=== PATIENT | female | born 2005 | race Caucasian/White ===

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

== ENCOUNTER 2025-07-23 15:54 | Emergency (ER) | payer OTHER, SELFPAY ==
--- OUTSIDE RECORDS SUMMARY | 2025-07-23 15:57 | XMS_ITS | Clinical Summary ---
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
--- OUTSIDE RECORDS SUMMARY | 2025-07-23 15:58 | XMS_ITS | Clinical Summary ---
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 Gender Identity Not on file Sexual Orientation Not on file Plan of Treatment Health Maintenance Due Date Last Done Comments ADVANCE CARE PLANNING 2005 ANNUAL REVIEW OF HM ORDERS 2005 CHLAMYDIA SCREENING 2004 DTAP/TDAP/TD VACCINE (2 - Td or Tdap) 04/22/2016 03/25/2016 HPV VACCINE (2 - 2-dose series) 05/25/2016 11/25/2015 HIV SCREENING 2019 MENINGITIS B VACCINE (1 of 2 - Standard) 2020 HEPATITIS C SCREENING 2022 HEPATITIS B VACCINE (1 of 3 - 19+ 3-dose series) 2023 YEARLY PREVENTIVE VISIT 03/29/2024 03/29/20, 03/02/2022, 05/04/2021, Additional history exists PHQ-2 (once per calendar year) 2024 PAP 2025 COVID-19 VACCINE ( - season) 2025 INFLUENZA VACCINE (#1) 2025 08/29/2019, 2018 ZOSTER VACCINE (1 of 2) 2054 MENINGITIS VACCINE Completed 03/02/2022, 03/25/2016 PNEUMOCOCCAL VACCINE: PEDIATRICS (0 to 5 YEARS) AND AT-RISK PATIENTS (6 to 49 YEARS) Aged Out No longer eligible based on patient's age to complete this topic [facility] [id number] [facility] Care Teams Proc Tech Relationship Specialty Start Date End Date No Ref-Primary, Physician PCP - General 10/26/23
--- OUTSIDE RECORDS SUMMARY | 2025-07-23 15:58 | XMS_ITS | Clinical Summary ---
Author Organization [facility] Address [address] [place] [address] Care Team Providers Care Water Quality Tester Name Role Phone Pcp, No Primary Care Provider Unavailabl e Allergies Active Allergy Reactions Criticality Noted Date Comments Dog Dander Anaphylaxis,Hives High 07/11/2025 Egg Derived Other - Describe In Comment Field 04/27/2021 GI upset Wheat Containing Prod Other - Describe I n Comment Field 04/27/2021 GI upset Medications benzonatate (TESSALON) 100 mg capsuleIndicati ons:Bronchitis with bronchospasm,As thma, unspecified asthma severity, unspecified whether complicated, unspecified whether persistent (HC) Take 1 Capsule (100 mg) by mouth 3 times daily if needed for Cough. 30 Capsule 5 Active albuterol 0.083% (2.5 mg/3 mL) neb solutionIndicat ions:Bronchitis with bronchospasm,As thma, unspecified asthma severity, unspecified whether complicated, unspecified whether persistent (HC) Inhale 3 mL (2.5 mg) via a nebulizer every 4 hours if needed for Cough 1st choice. 180 mL 5 Active NebulizerIndica tions:Bronchiti s with bronchospasm,As thma, unspecified asthma severity, unspecified whether complicated, unspecified whether persistent (HC) Nebulizer, disposable neb kit x 4, reuseable neb kit x 1, mask x 1, filters x 1. Frequency of use: daily; Medication: albuterol Length of need: prn months 1 Each 5 Active azithromycin (Zithromax Z-Velasquez) 250 mg tabletIndicatio ns:Bronchitis with bronchospasm,As thma, unspecified asthma severity, unspecified whether complicated, unspecified whether persistent (HC) Take 500 mg (2 tabs) by mouth on day 1, then 250 mg (1 tab) daily for days 2-5. 6 Tablet 5 025 Discontinu ed(*Med complete/R egimen complete/L evel of care change) predniSONE (DELTASONE) 20 mg tabletIndicatio ns:Bronchitis with bronchospasm,As thma, unspecified asthma severity, unspecified whether complicated, unspecified whether persistent (HC) Take 2 Tablets (40 mg) by mouth once daily with a meal for 5 days. 10 Tablet 5 025 NebulizerIndica tions:Bronchiti s with bronchospasm,As thma, unspecified asthma severity, unspecified whether complicated, unspecified whether persistent (HC) Nebulizer, disposable neb kit x 4, reuseable neb kit x 1, mask x 1, filters x 1. Frequency of use: daily; Medication: albuterol Length of need: prn months 1 Each 5 025 Discontinu ed(Reorder (E-cancel not sent)) NebulizerIndica tions:Bronchiti s with bronchospasm,As thma, unspecified asthma severity, unspecified whether complicated, unspecified whether persistent (HC) Nebulizer, disposable neb kit x 4, reuseable neb kit x 1, mask x 1, filters x 1. Frequency of use: daily; Medication: albuterol Length of need: prn months 1 Each 5 025 Discontinu ed(Reorder (E-cancel not sent)) NebulizerIndica tions:Bronchiti s with bronchospasm,As thma, unspecified asthma severity, unspecified whether complicated, unspecified whether persistent (HC) Nebulizer, disposable neb kit x 4, reuseable neb kit x 1, mask x 1, filters x 1. Frequency of use: daily; Medication: albuterol Length of need: prn months 1 Each 5 025 Discontinu ed(Reorder (E-cancel not sent)) NebulizerIndica tions:Bronchiti s with bronchospasm,As thma, unspecified asthma severity, unspecified whether complicated, unspecified whether persistent (HC) Nebulizer, disposable neb kit x 4, reuseable neb kit x 1, mask x 1, filters x 1. Frequency of use: daily; Medication: albuterol Length of need: prn months 1 Each 5 025 Discontinu ed(Reorder (E-cancel not sent)) NebulizerIndica tions:Bronchiti s with bronchospasm,As thma, unspecified asthma severity, unspecified whether complicated, unspecified whether persistent (HC) Nebulizer, disposable neb kit x 4, reuseable neb kit x 1, mask x 1, filters x 1. Frequency of use: daily; Medication: albuterol Length of need: prn months 1 Each 5 025 Discontinu ed(Reorder (E-cancel not sent)) colchicine 0.6 mg tabletIndicatio ns:Acute pericarditis, unspecified type (HC) Take 1 Tablet (0.6 mg) by mouth two times daily for 7 days. 14 Tablet 5 025 Active Problems Problem Noted Date Diagnosed Date Asthma, unspecified asthma s everity, unspecified whether complicated, unspecified whether persistent 07/04/2025 Encounters Date Type Department Care Team Description 07/11/2025 11:55 AM CDT Office Visit [facility] [address] [place] [address] Rosina Lee PA Breathing Problem (chest tightness, worse with exercise, isn't improving. Pain/tightness in chest when taking deep breaths) 07/11/2025 11:30 AM CDT Ancillary Procedure [facility] [address] [place] [address] 07/11/2025 Orders Only [facility] [address] [place] [address] Rosina Lee PA 2 scans: (2-Ord) NFLD-EKG-07/11/25 07/11/2025 Travel 07/04/2025 1:40 PM CDT Office Visit [facility] [address] [place] [address] Rosina Lee PA URI (ongoing for 3 weeks, seems to be worse when exercising, clear chest xray per [facility]. albuterol was helpful with breathing, but congestion is worsening. ) 07/04/2025 Travel from Last 3 Months Social History Tobacco Use Types Packs/Day Years Used Date Smoking Tobacco: Never Smokeless Tobacco: Never Tobacco Cessation:Counseling Given: Not Answered Social Connections Answer Date Recorded Do you often feel lonely or isolated from those around you? 0 07/04/2025 Financial Resource Strain Answer Date R ecorded Difficulty of Paying Living Expenses 3 07/04/2025 Difficulty of Paying Living Expenses Not on file 07/04/2025 Food Insecurity Answer Date Recorded Do you worry your food will run out before you are able to buy more? 1 07/04/2025 Transportation Needs Answer Date Record ed Does lack of transportation keep you from medica l appointments? 1 07/04/2025 Does lack of transportation keep you from work, meetings or getting things that you need? 1 07/04/2025 Housing Stability Answer Date Recorded What is your housing situation today? 1 07/04/2025 Utilities Answer Date Recorded Do you have trouble paying f or utilities (for example, heat, electricity, water, phone)? 1 07/04/2025 Comments No Sex and Gender Information Value Date Recorded Sex Assigned at Not on file Legal Sex Female 1:39 PM CDT Gender Identity Not on file Sexual Orientation Not on file Obstetrics History Last Filed Vital Signs Vital Sign Reading Time Taken Comments Blood Pressure 125/79 07/11/2025 8:32 AM CDT Pulse 64 07/11/2025 8:32 AM CDT Temperature 36.8 C (98.3 F) 07/04/2025 8:55 AM CDT Respiratory Rate - - Oxygen Saturation 98% 07/11/2025 8:32 AM CDT Inhaled Oxygen Concentration - - Weight - - Height - - Body Mass Index - - Plan of Treatment Upcoming Encounters Date Type Department Care Team (Late st Contact Info) Description 07/26/2025 11:00 AM CDT Ancillary Procedure [facility] [address] [place] [id number] Health Maintenance Due Date Last Done Comments Tetanus booster 2015 Depression screening for age 12+ 2016 HIV for age 15-65 2019 HPV series for age 9-45 (1 - 3-dose series) 2019 Chlamydia for age 16-24 2020 BMI (ht and wt on same day) for age 18+ 2022 Hepatitis C screening for age 18-79 2022 Hepatitis B series for 19+ ( 1 of 3 - 19+ 3-dose series) 2023 Pap test for age 21-65 2025 COVID-19 vaccine series ( - 2023- season) 2025 Influenza Vaccine (#1) 2025 RSV vaccine for adults or pr egnancy (1 - 1-dose 75+ series) 2079 Meningococcal series for age 11-21 Aged Out No longer eligible based on patient's age to complete this topic Pneumococcal series for age 6-49 Aged Out No longer eligible based on patient's age to complete this topic Procedures Procedure Name Priority Date/Time Associated Diagnosis Comments EKG 12 LEAD Routine 07/11/2025 9:58 AM CDT FIGUEROA (dyspnea on exertion) Chest pain, unspecified type MA READING EKG - NO CHARGE, COMP ONLY Routine 07/11/2025 9:56 AM CDT FIGUEROA (dyspnea on exertion) Chest pain, unspecified type CT CHEST PE STUDY STAT 07/11/2025 9:2 7 AM CDT FIGUEROA (dyspnea on exertion) Chest pain, unspecified type from Last 3 Months Results * EKG 12 LEAD (07/11/2025 9:58 AM CDT) us Rosina MARIE EKG ORD Edited Result - Final * MA READING EKG - NO CHARGE, COMP ONLY (07/11/2025 9:56 AM CDT) us Rosina MARIE PB - PROVIDER READINGS Final Result * CT CHEST PE STUDY (07/11/2025 9:27 AM CDT) Anatomical Region Laterality Modality CHEST, THORAX, HEART Computed To mography 07/11/2025 9:36 AM CDT Impressions 07/11/2025 9:36 AM CDT No findings of pulmonary embolus. Normal examination. Please note that all CT scans at this facility use dose modulation, iterative reconstruction, and/or weight-based dosing when appropriate to reduce radiation dose to as low as reasonably achievable. Dictated by Segnu Salazar MD @ 07/11/2025 9:36:04 AM (Electronically Signed) Narrative 07/11/2025 9:36 AM CDT For Patients: As a result of the Cures Act, medical imaging exams and procedure reports are released immediately into your electronic medical record. You may view this report before your referring provider. If you have questions, please contact your health care provider. INDICATION: Dyspnea on exertion. Chest pain. Clinical signs and symptoms of pulmonary embolus. COMPARISON: None TECHNIQUE: : CT examination of the chest was performed with the uneventful intravenous administration of 70 cc of Omnipaque 350 while thin axial sections were obtained from above the apices of the lungs to the lung bases. The examination was timed as a pulmonary artery angiogram. 3D reformat/MIP imaging was also provided. Please note that all CT scans at this facility use dose modulation, iterative reconstruction, and/or weight-based dosing when appropriate to reduce radiation dose to as low as reasonably achievable. FINDINGS: : HEART and MEDIASTINUM: The heart size is normal. There is no mediastinal or hilar adenopathy or mass. There is no pericardial effusion.Age-appropriate persistence of the thymus PULMONARY ARTERIAL CIRCULATION: There is no visible intraluminal filling defect to suggest pulmonary embolus. LUNGS and PLEURAL SPACES: The lungs show no focal consolidation or mass. The airways appear normal.There is no pleural effusion, pneumothorax or pleural based mass. VISUALIZED UPPER ABDOMEN: The limited visualized upper abdominal structures appear normal. OSSEOUS STRUCTURES: Age-appropriate appearance. No acute fracture or destructive process. TUBES and LINES: None. Procedure Note Segun Salazar MD - 07/11/2025 For Patients: As a result of the Cures Act, medical imagingexams and procedure reports are released immediately into your electronicmedical record. You may view this report before your referring provider.If you have questions, please contact your health care provider. INDICATION: Dyspnea on exertion. Chest pain. Clinical signs and symptoms of pulmonaryembolus. COMPARISON: None TECHNIQUE: : CT examination of the chest was performed with the uneventful intravenousadministration of 70 cc of Omnipaque 350 while thin axial sections wereobtained from above the apices of the lungs to the lung bases. Theexamination was timed as a pulmonary artery angiogram. 3D reformat/MIPimaging was also provided. Please note that all CT scans at this facility use dose modulation,iterative reconstruction, and/or weight-based dosing when appropriate toreduce radiation dose to as low as reasonably achievable. FINDINGS: : HEART and MEDIASTINUM: The heart size is normal. There is no mediastinalor hilar adenopathy or mass. There is no pericardialeffusion.Age-appropriate persistence of the thymus PULMONARY ARTERIAL CIRCULATION: There is no visible intraluminal fillingdefect to suggest pulmonary embolus. LUNGS and PLEURAL SPACES: The lungs show no focal consolidation or mass.The airways appear normal.There is no pleural effusion, pneumothorax orpleural based mass. VISUALIZED UPPER ABDOMEN: The limited visualized upper abdominalstructures appear normal. OSSEOUS STRUCTURES: Age-appropriate appearance. No acute fracture ordestructive process. TUBES and LINES: None. IMPRESSION: No findings of pulmonary embolus. Normal examination. Please note that all CT scans at this facility use dose modulation,iterative reconstruction, and/or weight-based dosing when appropriate toreduce radiation dose to as low as reasonably achievable. Dictated by Segun Salazar MD @ 07/11/2025 9:36:04 AM (Electronically Signed) Rosina MARIE CT Final Result from Last 3 Months Insurance [employer] Care Teams Water Quality Tester Relationship Specialty Start Date End Date Pcp, No . PCP - General 07/04/23
--- OUTSIDE RECORDS SUMMARY | 2025-07-23 15:58 | XMS_ITS | Data Portability ---
Author Organization [place] [facility], Main Office Address [address] [facility] [address] [id number] Assessment No assessment recorded. Plan of Treatment Reminders Order Date Submit Date Provider Last Modified By Organization Details Last Modified Time Details Appointments None recorded. Lab TSH, serum or plasma 2024 025 [facility], [address], [address], [place], [address], 5 08:09:27 CBC w/ auto diff 2024 025 [facility], [address], [address], [place], [address], 5 08:09:30 CMP, serum or plasma 2024 025 [facility] [place] [facility], [address], [address], [place], [address], 5 08:09:28 ferritin, serum or plasma 2024 025 [facility] [place] [facility], [address], [address], [place], [address], 5 08:09:29 iron + total iron-bindin g capacity (TIBC), serum 2024 025 [facility] [place] [facility], [address], [address], [place], [address], 5 08:09:29 CBC w/ auto diff 2024 025 [facility] [place] [facility], [address], [address], [place], [address], 5 04:10:25 iron + total iron-bindin g capacity (TIBC), serum 2024 025 [facility] [place] [facility], [address], [address], [place], [address], 5 04:10:24 ferritin, serum or plasma 2024 025 [facility] [place] [facility], [address], [address], [place], [address], 5 04:10:23 iron + total iron-bindin g capacity (TIBC), serum 2022 023 [facility] [place] [facility], [address], [address], [place], [address], 3 06:18:06 ferritin, serum or plasma 2022 023 [facility] [place] [facility], [address], [address], [place], [address], 3 06:18:07 CBC w/ auto diff 2022 023 [facility] [place] [facility], [address], [address], [place], [address], 3 06:18:06 CMP, serum or plasma 2022 023 [email or web address] [facility] [place] [facility], [address], [address], [place], [address], 3 16:59:39 PTH (parathyroi d hormone), intact + calcium, serum or plasma 2022 023 [facility] [place] [facility], [address], [address], [place], [address], 3 11:12:04 magnesium, serum or plasma 2022 023 [facility] [place] [facility], [address], [address], [place], [address], 3 11:12:00 vitamin D, 25-hydroxy, total, serum 2022 023 [facility] [place] [facility], [address], [address], [place], [address], 3 11:12:01 lipid panel, serum 2022 023 [facility], [address], [address], [place], [address], 3 11:12:03 TSH, serum or plasma 2022 023 [facility] [place] [facility], [address], [address], [place], [address], 3 11:12:03 CBC w/ auto diff 2022 023 [facility] [place] [facility], [address], [address], [place], [address], 3 11:12:00 CMP, serum or plasma 2022 023 [facility] [place] [facility], [address], [address], [place], [address], 3 11:12:02 ferritin, serum or plasma 2022 023 [facility] [place] [facility], [address], [address], [place], [address], 3 11:12:02 iron + total iron-bindin g capacity (TIBC), serum 2022 023 [facility], [address], [address], [place], [address], 3 11:12:01 Referral physical therapist referral - recurrent stress fractures 2023 024 [facility], [address], [address], [place], [address], 4 16:29:56 Procedures None recorded. Surgeries None recorded. Imaging XR, lower extremity 2022 023 [email or web address] Ash Moore MD, [address], [address], [place], [address], 3 11:11:17 MRI, lower leg, w/o contrast 2022 023 [email or web address], [address], [address], [place], [address], 3 15:04:37 XR, lower extremity 2022 023 [email or web address] Ash Moore MD, [address], [address], [place], [address], 3 11:18:32 Medication Orders epinephrine 0.3 mg/0.3 mL injection, auto-inject or 2024 025 [facility] [place] [facility], [address], [place], [place], [id number], 5 13:19:49 Mary Ellen Fe 1.5/30 (28) 1.5 mg-30 mcg (21)/75 mg (7) tablet 2024 025 [facility] [place] [facility], [address], [place], [place], [id number], 13:19:49 Patient TargetsNo targets recorded. Patient Instructions Encounter Date Encounter Id Patient Instructions Last Modified By Organization Details Last Modified Time 03/29/2023 [id number] iron deficiency anemia in children: care instructions Not available 03/29/2023 11:04:57 09/21/2023 [id number] iron deficiency anemia: care instructions Not available 09/21/2023 11:09:30 05/08/2025 [id number] iron deficiency anemia: care instructions Not available 05/08/2025 13:19:47 Reason for Referral Physical Therapist Referral for Pain in right lower limb recurrent stress fractures Referring Physician: Ash Moore, Family Medicine, Encounter Date: 03/05/2024 Results Created Date Observation Date Name Description Value Unit Range Abnormal Flag Note LastModifiedBy Organization Detail LastModifiedTime 03/29/2003/30/2023 MAGNE SIUM magnesium 1.9 mg/dL 1.7-2. 2 Testi ng Perfo rmed At: [facility] [address] [place] [address] Labor atory [facility] tor: Sukhjinder noe M.D. CLIA Numbe r [id number] [place] [id number] Not Available [facility] Main Lab (Blood Not Drawn At This Location) Visit [employer] [place], [address], 03/30/2023 11:12:00 03/29/20 23 03/29/2023 CBC W/AUT O DIFF WITH PLATE LETS WBC 5.6 K/uL 3.5-11 .0 Not Available [facility] (Blood Not Drawn At This Location) Visit [employer] [place], [address], 03/30/2023 11:12:00 03/29/20 23 03/29/2023 CBC W/AUT O DIFF WITH PLATE LETS RBC 4.70 M/uL 3.80-5 .40 Not Available [facility] (Blood Not Drawn At This Location) Visit [employer] [place], [address], 03/30/2023 11:12:00 03/29/20 23 03/29/2023 CBC W/AUT O DIFF WITH PLATE LETS hemoglobin 12.5 g/dL 11.5-1 5.5 Not Available [facility] (Blood Not Drawn At This Location) Visit [employer] [place], [address], 03/30/2023 11:12:00 03/29/2003/29/2023 CBC W/AUT O DIFF WITH PLATE LETS hematocrit 39.4 % 34.0-4 5.0 Not Available [facility] (Blood Not Drawn At This Location) Visit [employer] [place], [address], 03/30/2023 11:12:00 03/29/20 23 03/29/2023 CBC W/AUT O DIFF WITH PLATE LETS MCV 83.8 fL 80.0-9 9.0 Not Available [facility] (Blood Not Drawn At This Location) Visit [employer] [place], [address], 03/30/2023 11:12:00 03/29/20 23 03/29/2023 CBC W/AUT O DIFF WITH PLATE LETS MCH 26.6 pg 25.0-3 3.0 Not Available [facility] (Blood Not Drawn At This Location) Visit [employer] [place], [address], 03/30/2023 11:12:00 03/29/20 23 03/29/2023 CBC W/AUT O DIFF WITH PLATE LETS MCHC 31.7 g/dL 31.0-3 6.0 Not Available [facility] (Blood Not Drawn At This Location) Visit [employer] [place], [address], 03/30/2023 11:12:00 03/29/20 23 03/29/2023 CBC W/AUT O DIFF WITH PLATE LETS RDW 11.8 % 11.5-1 5.0 Not Available [facility] (Blood Not Drawn At This Location) Visit [employer] [place], [address], 03/30/2023 11:12:00 03/29/20 23 03/29/2023 CBC W/AUT O DIFF WITH PLATE LETS neutrophils 59.4 % Not Available [facility] (Blood Not Drawn At This Location) Visit [employer] [place], [address], 03/30/2023 11:12:00 03/29/20 23 03/29/2023 CBC W/AUT O DIFF WITH PLATE LETS lymphocytes 31.7 % Not Available [facility] (Blood Not Drawn At This Location) Visit [employer] [place], [address], 03/30/2023 11:12:00 03/29/20 23 03/29/2023 CBC W/AUT O DIFF WITH PLATE LETS monocytes 4.8 % Not Available [facility] (Blood Not Drawn At This Location) Visit [employer] [place], [address], 03/30/2023 11:12:00 03/29/20 23 03/29/2023 CBC W/AUT O DIFF WITH PLATE LETS eosinophils 3.4 % Not Available [facility] (Blood Not Drawn At This Location) Visit [employer] [place], [address], 03/30/2023 11:12:00 03/29/20 23 03/29/2023 CBC W/AUT O DIFF WITH PLATE LETS basophils 0.5 % Not Available [facility] (Blood Not Drawn At This Location) Visit [employer] [place], [address], 03/30/2023 11:12:00 03/29/20 23 03/29/2023 CBC W/AUT O DIFF WITH PLATE LETS immature granulocytes 0.2 % Not Available [facility] - Main Lab (Blood Not Drawn At This Location) Visit [employer] [place], [address], 03/30/2023 11:12:00 03/29/20 23 03/29/2023 CBC W/AUT O DIFF WITH PLATE LETS nucleated RBCs 0.0 /100_ WBC's 0.0 Not Available [facility] (Blood Not Drawn At This Location) Visit [employer] [place], [address], 03/30/2023 11:12:00 03/29/20 23 03/29/2023 CBC W/AUT O DIFF WITH PLATE LETS platelet count 348 K/uL 130-40 0 Not Available [facility] (Blood Not Drawn At This Location) Visit [employer] [place], [address], 03/30/2023 11:12:00 03/29/20 23 03/29/2023 CBC W/AUT O DIFF WITH PLATE LETS absolute neutrophils 3.33 K/uL 1.50-7 .50 Not Available [facility] (Blood Not Drawn At This Location) Visit [employer] [place], [address], 03/30/2023 11:12:00 03/29/20 23 03/29/2023 CBC W/AUT O DIFF WITH PLATE LETS absolute lymphocytes 1.78 K/uL 1.00-4 .00 Not Available [facility] (Blood Not Drawn At This Location) Visit [employer] [place], [address], 03/30/2023 11:12:00 03/29/20 23 03/29/2023 CBC W/AUT O DIFF WITH PLATE LETS absolute monocytes 0.27 K/uL 0.2-3. 8 Not Available [facility] (Blood Not Drawn At This Location) Visit [employer] [place], [address], 03/30/2023 11:12:00 03/29/20 23 03/29/2023 CBC W/AUT O DIFF WITH PLATE LETS absolute eosinophils 0.19 K/uL 0.00-0 .50 Not Available [facility] (Blood Not Drawn At This Location) Visit [employer] [place], [address], 03/30/2023 11:12:00 03/29/20 23 03/29/2023 CBC W/AUT O DIFF WITH PLATE LETS absolute basophils 0.03 K/uL 0.00-0 .20 Not Available [facility] (Blood Not Drawn At This Location) Visit [employer] [place], [address], 03/30/2023 11:12:00 03/29/20 23 03/29/2023 CBC W/AUT O DIFF WITH PLATE LETS abs immature granulocytes 0.01 K/uL 0.00-0 .10 Not Available [facility] (Blood Not Drawn At This Location) Visit [employer] [place], [address], 03/30/2023 11:12:00 03/29/20 23 03/29/2023 CBC W/AUT O DIFF WITH PLATE LETS abs nucleated RBCs 0.00 K/uL 0.00-0 .11 Testi ng Perfo rmed At: [facility] [address] [place] [address] Labor atory Direc tor: Jesus Barba [id number] [place] [id number] Not Available [facility] (Blood Not Drawn At This Location) Visit [employer] [place], [address], 03/30/2023 11:12:00 03/29/20 23 03/30/2023 IRON MATHEW NG CAPAC ITY AND IRON AND % SATUR ATION iron, serum 130 ug/dL 37-145 Not Available [facility] (Blood Not Drawn At This Location) Visit [employer] [place], [address], 03/30/2023 11:12:01 03/29/20 23 03/30/2023 IRON MATHEW NG CAPAC ITY AND IRON AND % SATUR ATION unsaturated ibc 288 ug/dL 112-34 7 Not Available [facility] (Blood Not Drawn At This Location) Visit [employer] [place], [address], 03/30/2023 11:12:01 03/29/20 23 03/30/2023 IRON MATHEW NG CAPAC ITY AND IRON AND % SATUR ATION calc total ibc 418 ug/dL 250-45 0 Not Available [facility] (Blood Not Drawn At This Location) Visit [employer] [place], [address], 03/30/2023 11:12:01 03/29/20 23 03/30/2023 IRON MATHEW NG CAPAC ITY AND IRON AND % SATUR ATION calc % iron sat 31 % 20-50 Testi ng Perfo rmed At: [facility] [address] [place] [address] Labor atory Dire tor: Jesus Barba [id number] [place] [id number] Not Available [facility] (Blood Not Drawn At This Location) Visit [employer] [place], [address], 03/30/2023 11:12:01 03/29/20 23 03/30/2023 VITAM IN D, 25 OH vitamin D, 25 oh 52 NG/mL see below EF FECTI VE 10/11 , MAGALY [facility] NOTE NEW METHO DOLOG Y IS ELECT ADI MILUM INESC ENCE MTAHEW NG ASSAY . NOTE: 25-HY DROXY VITAM IN D ASSAY INCLU DIANE 25-HY DROXY VITAM IN D2 AND D3. INTER PRETI VE RANGE S PEDIA TRIC (<17 YEARS ) . . . . . . . . . . . NG/ML 20-10 0 ADULT : INSUF FICIE NT . . . . . . . . . . . . . . NG/ML <20 SUBOP TIMAL . . . . . . . . . . . . . . . NG/ML 20-29 OPTIM AL . . . . . . . . . . . . . . . . . NG/ML 30-10 0 Testi ng Perfo rmed At: [facility] [address] [place] [address] Labor atory Dire tor: Sukhjinder noe M.D. CLIA Numbe r [id number] [place] [id number] Not Available [facility] (Blood Not Drawn At This Location) Visit [employer] [place], [address], 03/30/2023 11:12:01 03/29/20 23 03/30/2023 COMPR EHENS DIANA METAB OLIC PANEL + E-GFR glucose 91 mg/dL 70-99 Not Available [facility] (Blood Not Drawn At This Location) Visit [employer] [place], [address], 03/30/2023 11:12:02 03/29/20 23 03/30/2023 COMPR EHENS DIANA METAB OLIC PANEL + E-GFR BUN 9 mg/dL 6-20 Not Available [facility] (Blood Not Drawn At This Location) Visit [employer] [place], [address], 03/30/2023 11:12:02 03/29/20 23 03/30/2023 COMPR EHENS DIANA METAB OLIC PANEL + E-GFR creatinine 0.82 mg/dL 0.50-1 .10 Not Available [facility] (Blood Not Drawn At This Location) Visit [employer] [place], [address], 03/30/2023 11:12:02 03/29/20 23 03/30/2023 COMPR EHENS DIANA METAB OLIC PANEL + E-GFR eGFR (2020 CKD-epi) NO CALC mL/mi n/1.7 3 >60 NOTE: 2020 CKD-E PI is not valid ated for pedia tric popul ation s. For patie nts less than 19 years old, consi julianne NKF pedia tric eGFR calcu lator https ://arsenio long.o rg/pr kathy mead s/kdo qi/gf r_cal culat orPed Not Available [facility] (Blood Not Drawn At This Location) Visit [employer] [place], [address], 03/30/2023 11:12:02 03/29/20 23 03/30/2023 COMPR EHENS DIANA METAB OLIC PANEL + E-GFR calc BUN/creat 11 ratio 6-28 Not Available [facility] (Blood Not Drawn At This Location) Visit [employer] [place], [address], 03/30/2023 11:12:02 03/29/20 23 03/30/2023 COMPR EHENS DIANA METAB OLIC PANEL + E-GFR sodium 140 mEq/L 133-14 6 Not Available [facility] (Blood Not Drawn At This Location) Visit [employer] [place], [address], 03/30/2023 11:12:02 03/29/20 23 03/30/2023 COMPR EHENS DIANA METAB OLIC PANEL + E-GFR potassium 4.5 mEq/L 3.5-5. 4 Not Available [facility] (Blood Not Drawn At This Location) Visit [employer] [place], [address], 03/30/2023 11:12:02 03/29/20 23 03/30/2023 COMPR EHENS DIANA METAB OLIC PANEL + E-GFR chloride 105 mEq/L 95-107 Not Available [facility] (Blood Not Drawn At This Location) Visit [employer] [place], [address], 03/30/2023 11:12:02 03/29/20 23 03/30/2023 COMPR EHENS DIANA METAB OLIC PANEL + E-GFR carbon dioxide 22 mEq/L 19-31 Not Available [facility] (Blood Not Drawn At This Location) Visit [employer] [place], [address], 03/30/2023 11:12:02 03/29/20 23 03/30/2023 COMPR EHENS DIANA METAB OLIC PANEL + E-GFR calcium 9.5 mg/dL 8.5-10 .5 Not Available [facility] (Blood Not Drawn At This Location) Visit [employer] [place], [address], 03/30/2023 11:12:02 03/29/20 23 03/30/2023 COMPR EHENS DIANA METAB OLIC PANEL + E-GFR protein, total 7.3 g/dL 6.1-8. 3 Not Available [facility] (Blood Not Drawn At This Location) Visit [employer] [place], [address], 03/30/2023 11:12:02 03/29/20 23 03/30/2023 COMPR EHENS DIANA METAB OLIC PANEL + E-GFR albumin 4.7 g/dL 3.5-5. 2 Not Available [facility] (Blood Not Drawn At This Location) Visit [employer] [place], [address], 03/30/2023 11:12:02 03/29/20 23 03/30/2023 COMPR EHENS DIANA METAB OLIC PANEL + E-GFR calc globulin 2.6 g/dL 2.1-3. 7 Not Available [facility] (Blood Not Drawn At This Location) Visit [employer] [place], [address], 03/30/2023 11:12:02 03/29/20 23 03/30/2023 COMPR EHENS DIANA METAB OLIC PANEL + E-GFR calc A/G ratio 1.8 ratio 1.0-2. 6 Not Available [facility] (Blood Not Drawn At This Location) Visit [employer] [place], [address], 03/30/2023 11:12:02 03/29/20 23 03/30/2023 COMPR EHENS DIANA METAB OLIC PANEL + E-GFR bilirubin, total 0.9 mg/dL <=1.2 Not Available [facility] (Blood Not Drawn At This Location) Visit [employer] [place], [address], 03/30/2023 11:12:02 03/29/20 23 03/30/2023 COMPR EHENS DIANA METAB OLIC PANEL + E-GFR alkaline phosphatase 85 U/L 45-126 Not Available [facility] - Main Lab (Blood Not Drawn At This Location) Visit [employer] [place], [address], 03/30/2023 11:12:02 03/29/20 23 03/30/2023 COMPR EHENS DIANA METAB OLIC PANEL + E-GFR AST 16 U/L 9-40 Not Available [facility] (Blood Not Drawn At This Location) Visit [employer] [place], [address], 03/30/2023 11:12:02 03/29/20 23 03/30/2023 COMPR EHENS DIANA METAB OLIC PANEL + E-GFR ALT 12 U/L 5-40 Testi ng Perfo rmed At: [facility] [address] [place] [address] Labor atory Direc tor: Jesus Barba r [id number] [id number] [place] [id number] -01 Not Available [facility] (Blood Not Drawn At This Location) Visit [employer] [place], [address], 03/30/2023 11:12:02 03/29/20 23 03/30/2023 LIBBY TIN ferritin 11 NG/mL 13-200 low Testi ng Perfo rmed At: [facility] [address] [place] [address] Labor atory Direc tor: Jesus Barbae r [id number] [place] [id number] -01 Not Available [facility] (Blood Not Drawn At This Location) Visit [employer] [place], [address], 03/30/2023 11:12:02 03/29/20 23 03/30/2023 TSH, THIRD GENER ATION TSH, third generation 1.830 uIU/m L 0.400- 4.100 Testi ng Perfo rmed At: [employer] [facility] [address] [place] [address] Labor atory Direc tor: Jesus Barbae r [id number] [place] [id number] -[id number] Not Available [facility] (Blood Not Drawn At This Location) Visit [employer] [place], [address], 03/30/2023 11:12:03 03/29/20 23 03/30/2023 LIPID PANEL cholesterol 158 mg/dL <200 Not Available [facility] (Blood Not Drawn At This Location) Visit [employer] [place], [address], 03/30/2023 11:12:03 03/29/20 23 03/30/2023 LIPID PANEL triglyceride s 81 mg/dL <150 Not Available [facility] (Blood Not Drawn At This Location) Visit [employer] [place], [address], 03/30/2023 11:12:03 03/29/20 23 03/30/2023 LIPID PANEL HDL cholesterol 42 mg/dL >39 Not Available [facility] - Main Lab (Blood Not Drawn At This Location) Visit [employer] [place], [address], 03/30/2023 11:12:03 03/29/20 23 03/30/2023 LIPID PANEL calc LDL chol 99 mg/dL <100 NOTE: CALCU LATED LDL IS BASED ON DAVONTE N-HOP KINS METHO D WHICH INCLU DIANE ADJUS TABLE TRIGL YCERI DE:VL DL PRO STERO L RATIO . THIS FACTO R VARIE S BY MEASU RED TRIGL YCERI DE AND NON-H DL PRO STERO L FUENTES NTRAT IONS WITH INCRE ASED CALCU LATED LDL SEEN IN HIGHE R TRIGL YCERI DE OR LOWER NON-H DL SPECI MENS. FOR MORE INFOR KIRTI N, SEE DEVEN TRIPP NT AT [email or web address]: [email or web address] Not Available [facility] (Blood Not Drawn At This Location) Visit [employer] [place], [address], 03/30/2023 11:12:03 03/29/20 23 03/30/2023 LIPID PANEL risk ratio LDL/HDL 2.36 ratio <3.22 Testi ng Perfo rmed At: [facility] [address] [place] [address] Labor atory Direc tor: Sukhjinder noe M.D. MASHA Lunsford r [id number] [place] [id number] -[id number] Not Available [facility] (Blood Not Drawn At This Location) Visit [employer] [place], [address], 03/30/2023 11:12:03 03/29/20 23 03/30/2023 PTH, INTAC T, WITH CALCI UM, PHOSP HORUS , CREAT ININE intact PTH 22 pg/mL 15-65 Not Available [facility] (Blood Not Drawn At This Location) Visit [employer] [place], [address], 03/30/2023 11:12:04 03/29/20 23 03/30/2023 PTH, INTAC T, WITH CALCI UM, PHOSP HORUS , CREAT ININE calcium 9.5 mg/dL 8.5-10 .5 Not Available [facility] (Blood Not Drawn At This Location) Visit [employer] [place], [address], 03/30/2023 11:12:04 03/29/20 23 03/30/2023 PTH, INTAC T, WITH CALCI UM, PHOSP HORUS , CREAT ININE phosphorus 3.6 mg/dL 2.5-4. 8 Not Available [facility] (Blood Not Drawn At This Location) Visit [employer] [place], [address], 03/30/2023 11:12:04 03/29/2003/30/2023 PTH, INTAC T, WITH CALCI UM, PHOSP HORUS , CREAT ININE creatinine 0.82 mg/dL 0.50-1 .10 Not Available [facility] (Blood Not Drawn At This Location) Visit [employer] [place], [address], 03/30/2023 11:12:04 03/29/20 23 03/30/2023 PTH, INTAC T, WITH CALCI UM, PHOSP HORUS , CREAT ININE eGFR (2020 CKD-epi) NO CALC mL/mi n/1.7 3 >60 NOTE: 2020 CKD-E PI is not valid ated for meng perez s. For patie nts less than 19 years old, consi julianne NKF pedute ta eGFR calcu lator https ://arsenio w.lucy mercedes.o rg/pr kaseyess ional s/kdo qi/gf r_cal culat orPed Testi ng Perfo rmed At: [facility] [address] [place] [address] Labor atory [facility] tor: Sukhjinder noe, MOlivier GALLARDOUTE Nemesiogabino kenyatta [id number] [place] [id number] Not Available [facility] (Blood Not Drawn At This Location) Visit [employer] [place], [address], 03/30/2023 11:12:04 09/21/20 23 09/22/2023 CBC W/AUT O DIFF WITH PLATE LETS WBC 6.5 K/uL 3.5-11 .0 Not Available [facility] (Blood Not Drawn At This Location) Visit [employer] [place], [address], 09/22/2023 06:18:06 09/21/20 23 09/22/2023 CBC W/AUT O DIFF WITH PLATE LETS RBC 5.08 M/uL 3.80-5 .40 Not Available [facility] (Blood Not Drawn At This Location) Visit [employer] [place], [address], 09/22/2023 06:18:06 09/21/20 23 09/22/2023 CBC W/AUT O DIFF WITH PLATE LETS hemoglobin 13.4 g/dL 11.5-1 5.5 Not Available [facility] (Blood Not Drawn At This Location) Visit [employer] [place], [address], 09/22/2023 06:18:06 09/21/20 23 09/22/2023 CBC W/AUT O DIFF WITH PLATE LETS hematocrit 42.6 % 34.0-4 5.0 Not Available [facility] (Blood Not Drawn At This Location) Visit [employer] [place], [address], 09/22/2023 06:18:06 09/21/20 23 09/22/2023 CBC W/AUT O DIFF WITH PLATE LETS MCV 83.9 fL 80.0-9 9.0 Not Available [facility] (Blood Not Drawn At This Location) Visit [employer] [place], [address], 09/22/2023 06:18:06 09/21/20 23 09/22/2023 CBC W/AUT O DIFF WITH PLATE LETS MCH 26.4 pg 25.0-3 3.0 Not Available [facility] (Blood Not Drawn At This Location) Visit [employer] [place], [address], 09/22/2023 06:18:06 09/21/20 23 09/22/2023 CBC W/AUT O DIFF WITH PLATE LETS MCHC 31.5 g/dL 31.0-3 6.0 Not Available [facility] (Blood Not Drawn At This Location) Visit [employer] [place], [address], 09/22/2023 06:18:06 09/21/20 23 09/22/2023 CBC W/AUT O DIFF WITH PLATE LETS RDW 11.7 % 11.5-1 5.0 Not Available [facility] (Blood Not Drawn At This Location) Visit [employer] [place], [address], 09/22/2023 06:18:06 09/21/20 23 09/22/2023 CBC W/AUT O DIFF WITH PLATE LETS neutrophils 61.4 % Not Available [facility] Lab (Blood Not Drawn At This Location) Visit [employer] [place], [address], 09/22/2023 06:18:06 09/21/20 23 09/22/2023 CBC W/AUT O DIFF WITH PLATE LETS lymphocytes 26.5 % Not Available [facility] - Main Lab (Blood Not Drawn At This Location) Visit [employer] For Location Nearest [facility], [place], [address], 09/22/2023 06:18:06 09/21/20 23 09/22/2023 CBC W/AUT O DIFF WITH PLATE LETS monocytes 4.6 % Not Available [facility] Lab (Blood Not Drawn At This Location) Visit [employer] For Location Nearest [facility], [place], [address], 09/22/2023 06:18:06 09/21/20 23 09/22/2023 CBC W/AUT O DIFF WITH PLATE LETS eosinophils 6.2 % Not Available [facility] - Main Lab (Blood Not Drawn At This Location) Visit [employer] For Location Nearest [facility], [place], [address], 09/22/2023 06:18:06 09/21/20 23 09/22/2023 CBC W/AUT O DIFF WITH PLATE LETS basophils 1.1 % Not Available [facility] Lab (Blood Not Drawn At This Location) Visit [employer] For Location Nearest [facility], [place], [address], 09/22/2023 06:18:06 09/21/20 23 09/22/2023 CBC W/AUT O DIFF WITH PLATE LETS immature granulocytes 0.2 % Not Available [facility] - Main Lab (Blood Not Drawn At This Location) Visit [employer] For Location Nearest [facility], [place], [address], 09/22/2023 06:18:06 09/21/20 23 09/22/2023 CBC W/AUT O DIFF WITH PLATE LETS nucleated RBCs 0.0 /100_ WBC's 0.0 Not Available [facility] Lab (Blood Not Drawn At This Location) Visit [employer] For Location Nearest [facility], [place], [address], 09/22/2023 06:18:06 09/21/20 23 09/22/2023 CBC W/AUT O DIFF WITH PLATE LETS platelet count 349 K/uL 130-40 0 Not Available [facility] Lab (Blood Not Drawn At This Location) Visit [employer] [place], [address], 09/22/2023 06:18:06 09/21/20 23 09/22/2023 CBC W/AUT O DIFF WITH PLATE LETS absolute neutrophils 3.97 K/uL 1.50-7 .50 Not Available [facility] (Blood Not Drawn At This Location) Visit [employer] [place], [address], 09/22/2023 06:18:06 09/21/20 23 09/22/2023 CBC W/AUT O DIFF WITH PLATE LETS absolute lymphocytes 1.71 K/uL 1.00-4 .00 Not Available [facility] Lab (Blood Not Drawn At This Location) Visit [employer] [place], [address], 09/22/2023 06:18:06 09/21/20 23 09/22/2023 CBC W/AUT O DIFF WITH PLATE LETS absolute monocytes 0.30 K/uL 0.20-1 .00 Not Available [facility] (Blood Not Drawn At This Location) Visit [employer] [place], [address], 09/22/2023 06:18:06 09/21/20 23 09/22/2023 CBC W/AUT O DIFF WITH PLATE LETS absolute eosinophils 0.40 K/uL 0.00-0 .50 Not Available [facility] Main Lab (Blood Not Drawn At This Location) Visit [employer] [place], [address], 09/22/2023 06:18:06 09/21/20 23 09/22/2023 CBC W/AUT O DIFF WITH PLATE LETS absolute basophils 0.07 K/uL 0.00-0 .20 Not Available [facility] Main Lab (Blood Not Drawn At This Location) Visit [employer] [place], [address], 09/22/2023 06:18:06 09/21/20 23 09/22/2023 CBC W/AUT O DIFF WITH PLATE LETS abs immature granulocytes 0.01 K/uL 0.00-0 .10 Not Available [facility] Main Lab (Blood Not Drawn At This Location) Visit [employer] [place], [address], 09/22/2023 06:18:06 09/21/20 23 09/22/2023 CBC W/AUT O DIFF WITH PLATE LETS abs nucleated RBCs 0.00 K/uL 0.00-0 .11 Testi ng Perfo rmed At: [facility] [address] [place] [address] Labor atory Dire tor: Jesus BarbaIA Nemesioe r [id number] [place]. [id number] -01 Not Available [facility] (Blood Not Drawn At This Location) Visit [employer] [place], [address], 09/22/2023 06:18:06 09/21/20 23 09/22/2023 IRON MATHEW NG CAPAC ITY AND IRON AND % SATUR ATION iron, serum 118 ug/dL 37-145 Not Available [facility] (Blood Not Drawn At This Location) Visit [employer] [place], [address], 09/22/2023 06:18:06 09/21/20 23 09/22/2023 IRON MATHEW NG CAPAC ITY AND IRON AND % SATUR ATION unsaturated ibc 287 ug/dL 112-34 7 Not Available [facility] Lab (Blood Not Drawn At This Location) Visit [employer] [place], [address], 09/22/2023 06:18:06 09/21/20 23 09/22/2023 IRON MATHEW NG CAPAC ITY AND IRON AND % SATUR ATION calc total ibc 405 ug/dL 250-45 0 Not Available [facility] Main Lab (Blood Not Drawn At This Location) Visit [employer] [place], [address], 09/22/2023 06:18:06 09/21/20 23 09/22/2023 IRON MATHEW NG CAPAC ITY AND IRON AND % SATUR ATION calc % iron sat 29 % 20-50 Testi ng Perfo rmed At: [facility] [address] [place] [address] Labor [employer] [facility] tor: Sukhjinder noe M.D. CLUTE Numbe r [id number] [place] [id number] -[id number] Not Available [facility] Main Lab (Blood Not Drawn At This Location) Visit [employer] [place], [address], 09/22/2023 06:18:06 09/21/20 23 09/22/2023 LIBBY TIN ferritin 25 NG/mL 13-200 Testi ng Perfo rmed At: [employer] [facility] [address] [place] [address] Labor [employer] tor: Jesus Barba Numbe r [id number] [place] [id number] -01 Not Available [facility] (Blood Not Drawn At This Location) Visit [employer] [place], [address], 09/22/2023 06:18:07 02/22/20 25 02/22/2025 LIBBY TIN ferritin 47 NG/mL 13-200 Testi ng Perfo rmed At: [employer] [facility] [address] [place] [address] [employer] tor: Jesus Barba Numbe r [id number] [place] [id number] -01 Not Available [facility] Main Lab (Blood Not Drawn At This Location) Visit [employer] [place], [address], 02/22/2025 04:10:23 02/22/20 25 02/22/2025 IRON MATHEW NG CAPAC ITY AND IRON AND % SATUR ATION iron, serum 195 ug/dL 37-145 high Not Available [facility] (Blood Not Drawn At This Location) Visit [employer] [place], [address], 02/22/2025 04:10:24 02/22/20 25 02/22/2025 IRON MATHEW NG CAPAC ITY AND IRON AND % SATUR ATION unsaturated ibc 202 ug/dL 112-34 7 Not Available [facility] Main Lab (Blood Not Drawn At This Location) Visit [employer] [place], [address], 02/22/2025 04:10:24 02/22/20 25 02/22/2025 IRON MATHEW NG CAPAC ITY AND IRON AND % SATUR ATION calc total ibc 397 ug/dL 250-45 0 Not Available [facility] Main Lab (Blood Not Drawn At This Location) Visit [employer] [place], [address], 02/22/2025 04:10:24 02/22/20 25 02/22/2025 IRON MATHEW NG CAPAC ITY AND IRON AND % SATUR ATION calc % iron sat 49 % 20-50 Testi ng Perfo rmed At: [facility] [address] [place] [address] Labor atory [employer] tor: Jesus BarbaIA Nemesioe r [id number] [place] [id number] -01 Not Available [facility] Main Lab (Blood Not Drawn At This Location) Visit [employer] [place], [address], 02/22/2025 04:10:24 02/22/20 25 02/22/2025 CBC W/AUT O DIFF WITH PLATE LETS WBC 7.8 K/uL 3.5-11 .0 Not Available [facility] Lab (Blood Not Drawn At This Location) Visit [employer] [place], [address], 02/22/2025 04:10:24 02/22/20 25 02/22/2025 CBC W/AUT O DIFF WITH PLATE LETS RBC 4.94 M/uL 3.80-5 .40 Not Available [facility] Main Lab (Blood Not Drawn At This Location) Visit [employer] [place], [address], 02/22/2025 04:10:24 02/22/20 25 02/22/2025 CBC W/AUT O DIFF WITH PLATE LETS hemoglobin 13.8 g/dL 11.5-1 5.5 Not Available [facility] Main Lab (Blood Not Drawn At This Location) Visit [employer] [place], [address], 02/22/2025 04:10:24 02/22/20 25 02/22/2025 CBC W/AUT O DIFF WITH PLATE LETS hematocrit 43.7 % 34.0-4 5.0 Not Available [facility] Main Lab (Blood Not Drawn At This Location) Visit [employer] [place], [address], 02/22/2025 04:10:24 02/22/20 25 02/22/2025 CBC W/AUT O DIFF WITH PLATE LETS MCV 88.5 fL 80.0-9 9.0 Not Available [facility] Main Lab (Blood Not Drawn At This Location) Visit [employer] [place], [address], 02/22/2025 04:10:24 02/22/20 25 02/22/2025 CBC W/AUT O DIFF WITH PLATE LETS MCH 27.9 pg 25.0-3 3.0 Not Available [facility] Main Lab (Blood Not Drawn At This Location) Visit [employer] [place], [address], 02/22/2025 04:10:24 02/22/20 25 02/22/2025 CBC W/AUT O DIFF WITH PLATE LETS MCHC 31.6 g/dL 31.0-3 6.0 Not Available [facility] Main Lab (Blood Not Drawn At This Location) Visit [employer] [place], [address], 02/22/2025 04:10:24 02/22/20 25 02/22/2025 CBC W/AUT O DIFF WITH PLATE LETS RDW 11.8 % 11.5-1 5.0 Not Available [facility] (Blood Not Drawn At This Location) Visit [employer] [place], [address], 02/22/2025 04:10:24 02/22/20 25 02/22/2025 CBC W/AUT O DIFF WITH PLATE LETS neutrophils 61.7 % Not Available [facility] (Blood Not Drawn At This Location) Visit [employer] [place], [address], 02/22/2025 04:10:24 02/22/20 25 02/22/2025 CBC W/AUT O DIFF WITH PLATE LETS lymphocytes 27.1 % Not Available [facility] (Blood Not Drawn At This Location) Visit [employer] [place], [address], 02/22/2025 04:10:24 02/22/20 25 02/22/2025 CBC W/AUT O DIFF WITH PLATE LETS monocytes 5.2 % Not Available [facility] Main Lab (Blood Not Drawn At This Location) Visit [employer] [place], [address], 02/22/2025 04:10:24 02/22/20 25 02/22/2025 CBC W/AUT O DIFF WITH PLATE LETS eosinophils 4.9 % Not Available [facility] Main Lab (Blood Not Drawn At This Location) Visit [employer] [place], [address], 02/22/2025 04:10:24 02/22/20 25 02/22/2025 CBC W/AUT O DIFF WITH PLATE LETS basophils 0.8 % Not Available [facility] Main Lab (Blood Not Drawn At This Location) Visit [employer] [place], [address], 02/22/2025 04:10:24 02/22/20 25 02/22/2025 CBC W/AUT O DIFF WITH PLATE LETS immature granulocytes 0.3 % Not Available [facility] - Main Lab (Blood Not Drawn At This Location) Visit [employer] [place], [address], 02/22/2025 04:10:24 02/22/20 25 02/22/2025 CBC W/AUT O DIFF WITH PLATE LETS nucleated RBCs 0.0 /100_ WBC's 0.0 Not Available [facility] Main Lab (Blood Not Drawn At This Location) Visit [employer] [place], [address], 02/22/2025 04:10:24 02/22/20 25 02/22/2025 CBC W/AUT O DIFF WITH PLATE LETS platelet count 324 K/uL 130-40 0 Not Available [facility] Main Lab (Blood Not Drawn At This Location) Visit [employer] [place], [address], 02/22/2025 04:10:24 02/22/20 25 02/22/2025 CBC W/AUT O DIFF WITH PLATE LETS absolute neutrophils 4.84 K/uL 1.50-7 .50 Not Available [facility] Main Lab (Blood Not Drawn At This Location) Visit [employer] [place], [address], 02/22/2025 04:10:24 02/22/20 25 02/22/2025 CBC W/AUT O DIFF WITH PLATE LETS absolute lymphocytes 2.12 K/uL 1.00-4 .00 Not Available [facility] Main Lab (Blood Not Drawn At This Location) Visit [employer] [place], [address], 02/22/2025 04:10:24 02/22/20 25 02/22/2025 CBC W/AUT O DIFF WITH PLATE LETS absolute monocytes 0.41 K/uL 0.20-1 .00 Not Available [facility] Main Lab (Blood Not Drawn At This Location) Visit [employer] [place], [address], 02/22/2025 04:10:24 02/22/20 25 02/22/2025 CBC W/AUT O DIFF WITH PLATE LETS absolute eosinophils 0.38 K/uL 0.00-0 .50 Not Available [facility] Main Lab (Blood Not Drawn At This Location) Visit [employer] [place], [address], 02/22/2025 04:10:24 02/22/20 25 02/22/2025 CBC W/AUT O DIFF WITH PLATE LETS absolute basophils 0.06 K/uL 0.00-0 .20 Not Available [facility] Lab (Blood Not Drawn At This Location) Visit [employer] [place], [address], 02/22/2025 04:10:24 02/22/20 25 02/22/2025 CBC W/AUT O DIFF WITH PLATE LETS abs immature granulocytes 0.02 K/uL 0.00-0 .10 Not Available [facility] (Blood Not Drawn At This Location) Visit [employer] [place], [address], 02/22/2025 04:10:24 02/22/20 25 02/22/2025 CBC W/AUT O DIFF WITH PLATE LETS abs nucleated RBCs 0.00 K/uL 0.00-0 .11 Testi ng Perfo rmed At: [facility] [address] [facility] [place] [address] Labor atory Dire tor: Jesus Barba Numbe r [id number] [place] [id number] -01 Not Available [facility] (Blood Not Drawn At This Location) Visit [employer] [place], [address], 02/22/2025 04:10:24 05/08/20 25 05/09/2025 TSH, THIRD GENER ATION TSH, third generation 1.370 uIU/m L 0.400- 4.100 Testi ng Perfo rmed At: [facility] [address] [place] [address] Labor atory Dire tor: Jesus Barba [id number] [place]. [id number] -01 Not Available [facility] Main Lab (Blood Not Drawn At This Location) Visit [employer] [place], [address], 05/09/2025 08:09:27 05/08/20 25 05/09/2025 COMPR EHENS DIANA METAB OLIC PANEL + E-GFR glucose 76 mg/dL 70-99 Not Available [facility] (Blood Not Drawn At This Location) Visit [employer] [place], [address], 05/09/2025 08:09:28 05/08/2005/09/2025 COMPR EHENS DIANA METAB OLIC PANEL + E-GFR BUN 12 mg/dL 6-20 Not Available [facility] (Blood Not Drawn At This Location) Visit [employer] [place], [address], 05/09/2025 08:09:28 05/08/20 25 05/09/2025 COMPR EHENS DIANA METAB OLIC PANEL + E-GFR creatinine 1.01 mg/dL 0.60-1 .30 Not Available [facility] Main Lab (Blood Not Drawn At This Location) Visit [employer] [place], [address], 05/09/2025 08:09:28 05/08/20 25 05/09/2025 COMPR EHENS DIANA METAB OLIC PANEL + E-GFR eGFR (2020 CKD-epi) 81 mL/mi n/1.7 3 >60 Not Available [facility] Main Lab (Blood Not Drawn At This Location) Visit [employer] [place], [address], 05/09/2025 08:09:28 05/08/20 25 05/09/2025 COMPR EHENS DIANA METAB OLIC PANEL + E-GFR calc BUN/creat 12 ratio 6-28 Not Available [facility] Main Lab (Blood Not Drawn At This Location) Visit [employer] [place], [address], 05/09/2025 08:09:28 05/08/20 25 05/09/2025 COMPR EHENS DIANA METAB OLIC PANEL + E-GFR sodium 141 mEq/L 133-14 6 Not Available [facility] Lab (Blood Not Drawn At This Location) Visit [employer] [place], [address], 05/09/2025 08:09:28 05/08/20 25 05/09/2025 COMPR EHENS DIANA METAB OLIC PANEL + E-GFR potassium 4.5 mEq/L 3.5-5. 4 Not Available [facility] Main Lab (Blood Not Drawn At This Location) Visit [employer] [place], [address], 05/09/2025 08:09:28 05/08/20 25 05/09/2025 COMPR EHENS DIANA METAB OLIC PANEL + E-GFR chloride 104 mEq/L 95-107 Not Available [facility] Main Lab (Blood Not Drawn At This Location) Visit [employer] [place], [address], 05/09/2025 08:09:28 05/08/20 25 05/09/2025 COMPR EHENS DIANA METAB OLIC PANEL + E-GFR carbon dioxide 24 mEq/L 19-31 Not Available [facility] Main Lab (Blood Not Drawn At This Location) Visit [employer] [place], [address], 05/09/2025 08:09:28 05/08/20 25 05/09/2025 COMPR EHENS DIANA METAB OLIC PANEL + E-GFR calcium 8.9 mg/dL 8.5-10 .5 Not Available [facility] (Blood Not Drawn At This Location) Visit [employer] [place], [address], 05/09/2025 08:09:28 05/08/2005/09/2025 COMPR EHENS DIANA METAB OLIC PANEL + E-GFR protein, total 6.8 g/dL 6.1-8. 3 Not Available [facility] (Blood Not Drawn At This Location) Visit [employer] [place], [address], 05/09/2025 08:09:28 05/08/2005/09/2025 COMPR EHENS DIANA METAB OLIC PANEL + E-GFR albumin 4.5 g/dL 3.5-5. 2 Not Available [facility] (Blood Not Drawn At This Location) Visit [employer] [place], [address], 05/09/2025 08:09:28 05/08/2005/09/2025 COMPR EHENS DIANA METAB OLIC PANEL + E-GFR calc globulin 2.3 g/dL 1.9-3. 7 Not Available [facility] (Blood Not Drawn At This Location) Visit [employer] [place], [address], 05/09/2025 08:09:28 05/08/2005/09/2025 COMPR EHENS DIANA METAB OLIC PANEL + E-GFR calc A/G ratio 2.0 ratio 1.0-2. 6 Not Available [facility] (Blood Not Drawn At This Location) Visit [employer] [place], [address], 05/09/2025 08:09:28 05/08/20 25 05/09/2025 COMPR EHENS DIANA METAB OLIC PANEL + E-GFR bilirubin, total 0.7 mg/dL <=1.2 Not Available [facility] - Main Lab (Blood Not Drawn At This Location) Visit [employer] [place], [address], 05/09/2025 08:09:28 05/08/20 25 05/09/2025 COMPR EHENS DIANA METAB OLIC PANEL + E-GFR alkaline phosphatase 66 U/L 39-117 Not Available [facility] - Main Lab (Blood Not Drawn At This Location) Visit [employer] [place], [address], 05/09/2025 08:09:28 05/08/20 25 05/09/2025 COMPR EHENS DIANA METAB OLIC PANEL + E-GFR AST 21 U/L 9-40 Not Available [facility] Main Lab (Blood Not Drawn At This Location) Visit [employer] [place], [address], 05/09/2025 08:09:28 05/08/20 25 05/09/2025 COMPR EHENS DIANA METAB OLIC PANEL + E-GFR ALT 14 U/L 5-40 Testi ng Perfo rmed At: [facility] [address] [place] [address] Labor atory Dire tor: Jesus Barba r [id number] [place] [id number] -01 Not Available [facility] (Blood Not Drawn At This Location) Visit [employer] [place], [address], 05/09/2025 08:09:28 05/08/20 25 05/09/2025 IRON MATHEW NG CAPAC ITY AND IRON AND % SATUR ATION iron, serum 79 ug/dL 37-145 Not Available [facility] - Main Lab (Blood Not Drawn At This Location) Visit [employer] [place], [address], 05/09/2025 08:09:29 05/08/20 25 05/09/2025 IRON MATHEW NG CAPAC ITY AND IRON AND % SATUR ATION unsaturated ibc 297 ug/dL 112-34 7 Not Available [facility] (Blood Not Drawn At This Location) Visit [employer] [place], [address], 05/09/2025 08:09:29 05/08/20 25 05/09/2025 IRON MATHEW NG CAPAC ITY AND IRON AND % SATUR ATION calc total ibc 376 ug/dL 250-45 0 Not Available [facility] (Blood Not Drawn At This Location) Visit [employer] [place], [address], 05/09/2025 08:09:29 05/08/20 25 05/09/2025 IRON MATHEW NG CAPAC ITY AND IRON AND % SATUR ATION calc % iron sat 21 % 20-50 Testi ng Perfo rmed At: [facility] [address] [place] [address] Labor [employer] tor: Jesus Barba r [id number] [place] [id number] -01 Not Available [facility] Lab (Blood Not Drawn At This Location) Visit [employer] [place], [address], 05/09/2025 08:09:29 05/08/2005/09/2025 LIBBY TIN ferritin 37 NG/mL 13-200 Testi ng Perfo rmed At: [facility] [employer] [address] [place] [id number] Labor atory Direc tor: Sukhjinder noe M.D. CLIA Numbe r [id number] [place] [id number] Not Available [facility] Main Lab (Blood Not Drawn At This Location) Visit [employer] [place], [address], 05/09/2025 08:09:29 05/08/2005/09/2025 CBC W/AUT O DIFF WITH PLATE LETS WBC 8.2 K/uL 3.5-11 .0 Not Available [facility] (Blood Not Drawn At This Location) Visit [employer] [place], [address], 05/09/2025 08:09:30 05/08/2005/09/2025 CBC W/AUT O DIFF WITH PLATE LETS RBC 4.59 M/uL 3.80-5 .40 Not Available [facility] (Blood Not Drawn At This Location) Visit [employer] [place], [address], 05/09/2025 08:09:30 05/08/2005/09/2025 CBC W/AUT O DIFF WITH PLATE LETS hemoglobin 12.7 g/dL 11.5-1 5.5 Not Available [facility] (Blood Not Drawn At This Location) Visit [employer] [place], [address], 05/09/2025 08:09:30 05/08/2005/09/2025 CBC W/AUT O DIFF WITH PLATE LETS hematocrit 41.3 % 34.0-4 5.0 Not Available [facility] (Blood Not Drawn At This Location) Visit [employer] [place], [address], 05/09/2025 08:09:30 05/08/2005/09/2025 CBC W/AUT O DIFF WITH PLATE LETS MCV 90.0 fL 80.0-9 9.0 Not Available [facility] (Blood Not Drawn At This Location) Visit [employer] [place], [address], 05/09/2025 08:09:30 05/08/20 25 05/09/2025 CBC W/AUT O DIFF WITH PLATE LETS MCH 27.7 pg 25.0-3 3.0 Not Available [facility] (Blood Not Drawn At This Location) Visit [employer] [place], [address], 05/09/2025 08:09:30 05/08/2005/09/2025 CBC W/AUT O DIFF WITH PLATE LETS MCHC 30.8 g/dL 31.0-3 6.0 low Not Available [facility] (Blood Not Drawn At This Location) Visit [employer] [place], [address], 05/09/2025 08:09:30 05/08/2005/09/2025 CBC W/AUT O DIFF WITH PLATE LETS RDW 11.9 % 11.5-1 5.0 Not Available [facility] (Blood Not Drawn At This Location) Visit [employer] [place], [address], 05/09/2025 08:09:30 05/08/2005/09/2025 CBC W/AUT O DIFF WITH PLATE LETS neutrophils 65.2 % Not Available [facility] (Blood Not Drawn At This Location) Visit [employer] [place], [address], 05/09/2025 08:09:30 05/08/2005/09/2025 CBC W/AUT O DIFF WITH PLATE LETS lymphocytes 23.4 % Not Available [facility] (Blood Not Drawn At This Location) Visit [employer] [place], [address], 05/09/2025 08:09:30 05/08/20 25 05/09/2025 CBC W/AUT O DIFF WITH PLATE LETS monocytes 5.5 % Not Available [facility] (Blood Not Drawn At This Location) Visit [employer] [place], [address], 05/09/2025 08:09:30 05/08/2005/09/2025 CBC W/AUT O DIFF WITH PLATE LETS eosinophils 4.9 % Not Available [facility] - Main Lab (Blood Not Drawn At This Location) Visit [employer] [place], [address], 05/09/2025 08:09:30 05/08/20 25 05/09/2025 CBC W/AUT O DIFF WITH PLATE LETS basophils 0.9 % Not Available [facility] Lab (Blood Not Drawn At This Location) Visit [employer] [place], [address], 05/09/2025 08:09:30 05/08/20 25 05/09/2025 CBC W/AUT O DIFF WITH PLATE LETS immature granulocytes 0.1 % Not Available [facility] - Main Lab (Blood Not Drawn At This Location) Visit [employer] [place], [address], 05/09/2025 08:09:30 05/08/20 25 05/09/2025 CBC W/AUT O DIFF WITH PLATE LETS nucleated RBCs 0.0 /100_ WBC's 0.0 Not Available [facility] (Blood Not Drawn At This Location) Visit [employer] [place], [address], 05/09/2025 08:09:30 05/08/20 25 05/09/2025 CBC W/AUT O DIFF WITH PLATE LETS platelet count 288 K/uL 130-40 0 Not Available [facility] (Blood Not Drawn At This Location) Visit [employer] [place], [address], 05/09/2025 08:09:30 05/08/20 25 05/09/2025 CBC W/AUT O DIFF WITH PLATE LETS absolute neutrophils 5.35 K/uL 1.50-7 .50 Not Available [facility] (Blood Not Drawn At This Location) Visit [employer] [place], [address], 05/09/2025 08:09:30 05/08/2005/09/2025 CBC W/AUT O DIFF WITH PLATE LETS absolute lymphocytes 1.92 K/uL 1.00-4 .00 Not Available [facility] (Blood Not Drawn At This Location) Visit [employer] [place], [address], 05/09/2025 08:09:30 05/08/2005/09/2025 CBC W/AUT O DIFF WITH PLATE LETS absolute monocytes 0.45 K/uL 0.20-1 .00 Not Available [facility] (Blood Not Drawn At This Location) Visit [employer] [place], [address], 05/09/2025 08:09:30 05/08/2005/09/2025 CBC W/AUT O DIFF WITH PLATE LETS absolute eosinophils 0.40 K/uL 0.00-0 .50 Not Available [facility] (Blood Not Drawn At This Location) Visit [employer] [place], [address], 05/09/2025 08:09:30 05/08/2005/09/2025 CBC W/AUT O DIFF WITH PLATE LETS absolute basophils 0.07 K/uL 0.00-0 .20 Not Available [facility] (Blood Not Drawn At This Location) Visit [employer] [place], [address], 05/09/2025 08:09:30 05/08/2005/09/2025 CBC W/AUT O DIFF WITH PLATE LETS abs immature granulocytes 0.01 K/uL 0.00-0 .10 Not Available [facility] (Blood Not Drawn At This Location) Visit [employer] [place], [address], 05/09/2025 08:09:30 05/08/20 25 05/09/2025 CBC W/AUT O DIFF WITH PLATE LETS abs nucleated RBCs 0.00 K/uL 0.00-0 .11 Testi ng Perfo rmed At: [facility] [address] [place] [address] Labor atory [facility] tor: Sukhjinder noe M.D. MASHA Herre r [id number] [place] [id number] Not Available [facility] (Blood Not Drawn At This Location) Visit [employer] For Location [place], [place], [address], 05/09/2025 08:09:30 03/29/20 23 XR, lower extre mity No observ ation record ed. [email or web address] Ash Moore MD [address] [facility] [address], [place], [address], 03/29/2023 11:04:40 03/31/20 23 03/31/2023 MRI, lower leg, w/o contr ast No observ ation record ed. [email or web address] [facility] [address], [place], [address], 03/31/2023 16:31:35 09/21/20 23 XR, lower extre mity No observ ation record ed. [email or web address] Ash Moore MD [address] [facility] [address], [place], [address], 09/21/2023 11:06:03 Result Notes None recorded. Problems Name Problem SNOMED Code Status Onset Date Resolution Date Notes Provider Name and Address Organization Details Recorded Time Asthma 655680074 Active 016 Not Available [facility] 04/22/2021 13:33:59 Problem Notes None recorded. Procedures Surgical History Date Name Laterality Status Provider Name and Address Organization Details Recorded Time 05/01/20 21 Cholecystectomy completed Thania Chamberlain [place] [facility] 05/04/2021 11:32:18 08/28/20 19 Cryosurgery completed César Montez MD [address] [facility] [address], [place], [address] 08/28/2019 21:38:55 06/02/20 18 Nebulizer tx completed César Montez MD [address] [facility], [address], [place], [address], [facility] 06/02/2018 18:39:25 Imaging Results None recorded. Procedure Notes None recorded. Medical Equipment None Reported. Allergies Allergen ID Allergen Name Allergen Category Reaction Reaction Severity Criticality Documentation Date Start Date Code Code System Note Provider Name and Address Organization Details Recorded Time 15014 No known allergy (situatio n) Not available Not available Not available Not available 09/21/2023 [address]507 6003 SNJUDY Lau CMA [facility] 3 10:42:17 Medications Name Sig Start Date Stop Date Status Note LastModified by Organization Details LastModified Time symbicort aer 160-4.5 03/02 completed Not Available Not Available Not Available montelukast sodium 10 mg tabs 10/21 completed Not Available Not Available Not Available epinephrine 0.3 mg/0.3ml soaj 03/02 completed Not Available Not Available Not Available methylpredn isolone dose pack 4 mg tbpk 10/21 completed Not Available Not Available Not Available omeprazole 20 mg cpdr 03/02 completed Not Available Not Available Not Available 10/22 tab 03/02 completed Not Available Not Available Not Available fe tab .03/01 completed Not Available Not Available Not Available prednisone 20 mg tabs 10/21 completed Not Available Not Available Not Available dymista spr 137-50 03/02 completed Not Available Not Available Not Available folic acid 1 mg tabs 03/02 completed Not Available Not Available Not Available amoxicillin 500 mg capsule TAKE ONE (1) CAPSULE(S ) BY MOUTH EVERY EIGHT HOURS. 03/29 completed Not Available Not Available Not Available montelukast 5 mg chewable tablet 05/01 completed Not Available Not Available Not Available cromolyn 100 mg/5 mL oral concentrate USE TWO (2) AMPULES MIXED WITH 6 OUNCES OF WATER BEFORE MEALS. 03/02 completed Not Available Not Available Not Available prednisone 10 mg tablet TAKE TWO (2) TABLET(S) BY MOUTH TWICE A DAY FOR 30 DAYS. 03/29 completed Not Available Not Available Not Available Depo-Medrol 40 mg/mL suspension for injection Take 40 mg by injection route. 05/01 completed Not Available Not Available Not Available cetirizine 10 mg tablet TAKE ONE (1) TABLET(S) BY MOUTH ONCE OR TWICE A DAY. 03/02 completed Not Available Not Available Not Available hydrocodone 5 mg-acetamin ophen 325 mg tablet TAKE 1 TABLET BY MOUTH EVERY 6 HOURS NEEDED PAIN 03/02 completed Not Available Not Available Not Available tretinoin 0.025 % topical cream PLEASE SEE ATTACHED FOR DETAILED DIRECTION S active Not Available Not Available No t Available ondansetron HCl 4 mg tablet TAKE ONE (1) TABLET(S) BY MOUTH EVERY FOUR HOURS NEEDED. 03/02 completed Not Available Not Available Not Available famotidine 40 mg tablet TAKE ONE (1) TABLET(S) BY MOUTH DAILY. 03/02 completed Not Available Not Available Not Available Medrol (Velasquez) 4 mg tablets in a dose pack Take 1 dose pk by oral route as directed. 10/21 completed Not Available Not Available Not Available prednisone 20 mg tablet TAKE 1 TABLET BY MOUTH TWICE A DAY FOR 30 DAYS 03/05 completed Not Available Not Available Not Available Zithromax Z-Velasquez 250 mg tablet Take 1 dose pk by oral route as directed. 04/17 completed Not Available Not Available Not Available hydroxyzine HCl 50 mg tablet TAKE ONE (1) TABLET(S) BY MOUTH EVERY TWELVE HOURS NEEDED. 03/29 completed Not Available Not Available Not Available ondansetron 8 mg disintegrat ing tablet DISSOLVE ONE (1) TABLET(S) BY MOUTH EVERY SIX HOURS NEEDED FOR NAUSEA AND VOMITING. 03/29 completed Not Available Not Available Not Available amitriptyli ne 10 mg tablet TAKE ONE (1) TABLET(S) BY MOUTH IN THE EVENING. 03/02 completed Not Available Not Available Not Available hyoscyamine 0.125 mg disintegrat ing tablet PLACE TWO (2) TABLETS BY MOUTH EVERY 4-6 HOURS NEEDED FOR ABDOMINAL PAIN. 03/02 completed Not Available Not Available Not Available pantoprazol e 40 mg tablet,azalia yed release TAKE ONE (1) TABLET(S) BY MOUTH EVERY DAY. 03/02 completed Not Available Not Available Not Available hyoscyamine 0.125 mg sublingual tablet DISSOLVE ONE (1) TABLET(S) BY MOUTH EVERY FOUR TO SIX HOURS NEEDED. 05/08 completed Not Available Not Available Not Available ibuprofen 400 mg tablet TAKE ONE (1) TABLET(S) BY MOUTH EVERY SIX HOURS FOR PAIN. 03/02 completed Not Available Not Available Not Available omeprazole 20 mg capsule,del ayed release 05/01 completed Not Available Not Available Not Available folic acid 1 mg tablet TAKE ONE (1) TABLET(S) BY MOUTH ONCE A DAY. 03/02 completed Not Available Not Available Not Available montelukast 10 mg tablet TAKE ONE (1) TABLET(S) BY MOUTH EVERY DAY. 03/02 completed Not Available Not Available Not Available mirtazapine 15 mg tablet TAKE ONE (1) TABLET(S) BY MOUTH IN THE EVENING. 03/02 completed Not Available Not Available Not Available epinephrine 0.3 mg/0.3 mL injection, auto-inject or USE DIRECTED. active Not Available Not Available No t Available albuterol sulfate HFA 90 mcg/actuati on aerosol inhaler Inhale 2 puffs every 4 hours by inhalatio n route as needed. 03/02 completed Not Available Not Available Not Available ondansetron 4 mg disintegrat ing tablet TAKE ONE (1) TABLET(S) BY MOUTH EVERY FOUR TO SIX HOURS NEEDED FOR NAUSEA. 03/02 completed Not Available Not Available Not Available colestipol 1 gram tablet TAKE ONE (1) TABLET(S) BY MOUTH TWICE A DAY. active Not Available Not Available No t Available amoxicillin 875 mg-potassiu m clavulanate 125 mg tablet Take 1 tablet twice a day by oral route for 10 days. 02/20 completed Not Available Not Available Not Available June 10/22 (21) 1 mg-20 mcg tablet TAKE ONE (1) TABLET(S) BY MOUTH ONCE A DAY. 03/02 completed Not Available Not Available Not Available cholestyram ine (with sugar) 4 gram powder for susp in a packet MIX ONE-HALF (1/2) PACKET(S) AND TAKE BY MOUTH EVERY DAY. 05/08 completed Not Available Not Available Not Available metoprolol tartrate 25 mg tablet TAKE ONE (1) TABLET(S) BY MOUTH TWICE A DAY AT 7AM AND 7PM. 03/02 completed Not Available Not Available Not Available chlorhexidi ne gluconate 0.12 % mouthwash SWISH AND SPIT 15MLS BY MOUTH FOR 30 SECONDS TWICE A DAY AFTER MEALS. 03/29 completed Not Available Not Available Not Available Advair Diskus 04/17 completed Not Available Not Available Not Available ProAir HFA 1-2 puffs every 4-6 hours as needed for cough/whe arley 11/23 completed Not Available Not Available Not Available Symbicort 160 mcg-4.5 mcg/actuati on HFA aerosol inhaler INHALE TWO (2) PUFF(S) BY MOUTH TWICE A DAY. 03/02 completed Not Available Not Available Not Available budesonide- formoterol HFA 80 mcg-4.5 mcg/actuati on aerosol inhaler Inhale 2 {puff}s by inhalatio n route. 05/08 completed Not Available Not Available Not Available levocetiriz ine 5 mg tablet TAKE ONE (1) TABLET(S) BY MOUTH DAILY. 03/02 completed Not Available Not Available Not Available Zyrtec 10 mg capsule Take by oral route. 05/01 completed Not Available Not Available Not Available Dymista 137 mcg-50 mcg/spray nasal spray 08/28 completed Not Available Not Available Not Available Flucelvax Quad 60 mcg (15 mcg x 4)/0.5 mL IM suspension 02/20 completed Not Available Not Available Not Available Xolair 150 mg/mL subcutaneou s syringe 05/08 completed Not Available Not Available Not Available Seysara 100 mg tablet TAKE 1 TAP BY MOUTH EVERY DAY WITH FOOD AND A FULL GLASS OF WATER 03/05 completed Not Available Not Available Not Available Mary Ellen Fe 1.5/30 (28) 1.5 mg-30 mcg (21)/75 mg (7) tablet TAKE DIRECTED 2024 active Not Available Not Available Not Avai lable Vitals Date Recorded Body height Respiratory rate Body mass index (BMI) [Percentile] Per age and sex Body mass index (BMI) Body weight Body temperature Heart rate Oxygen saturation Oxygen saturation in Arterial blood by Pulse oximetry Systolic And Diastolic Provider Name and Address Organization Details Last Updated DateTime 5 173.99 cm 18 /min 36 % 20.7 kg/m2 26083.1 8 g 98.3 [degF] 59 /min 98 % 98 % 119/64 mm[Hg] Kay ramsey [facility] 5 15:39:58 Date Recorded Body height Body mass index (BMI) Body mass index (BMI) [Percentile] Per age and sex Body weight Body temperature Respiratory rate Heart rate Oxygen saturation Oxygen saturation in Arterial blood by Pulse oximetry Systolic And Diastolic Provider Name and Address Organization Details Last Updated DateTime 4 173.99 cm 20.7 kg/m2 37 % 10338.7 5 g 97.8 [degF] 18 /min 58 /min 98 % 98 % 112/64 mm[Hg] Jose Lau [facility] 4 12:59:56 Date Recorded Respiratory rate Body weight Body mass index (BMI) [Percentile] Per age and sex Body mass index (BMI) Body height Body temperature Oxygen saturation Oxygen saturation in Arterial blood by Pulse oximetry Heart rate Systolic And Diastolic Provider Name and Address Organization Details Last Updated DateTime 3 18 /min 16063.0 9 g 45 % 21.1 kg/m2 173.99 cm 97.1 [degF] 99 % 99 % 80 /min 104/66 mm[Hg] Kiesha John [facility] 3 10:20:38 Date Recorded Body height Respiratory rate Body temperature Body mass index (BMI) Body weight Heart rate Oxygen saturation Oxygen saturation in Arterial blood by Pulse oximetry Systolic And Diastolic Provider Name and Address Organization Details Last Updated DateTime 5 173.99 cm 18 /min 98.9 [degF] 20.2 kg/m2 66847.9 7 g 63 /min 98 % 98 % 102/64 mm[Hg] Maryuri Laurent [place] - [facility] 5 12:52:53 Date Recorded Body height Body mass index (BMI) [Percentile] Per age and sex Body mass index (BMI) Body weight Body temperature Respiratory rate Heart rate Oxygen saturation Oxygen saturation in Arterial blood by Pulse oximetry Systolic And Diastolic Provider Name and Address Organization Details Last Updated DateTime 3 173.99 cm 39 % 20.8 kg/m2 24250.3 4 g 97.7 [degF] 18 /min 74 /min 98 % 98 % 110/76 mm[Hg] Jose Lau CMA [place] - [facility] 3 10:44:42 Social History Question Answer Notes LastModified by Organizat ion Details LastModified Time Tobacco Smoking Status Never Smoker Stephanie belle [place] - [facility] 03/25/2016 09:04:57 Do You Have An Advance Directive? No Information not available 03/25/2016 Animal Exposure? Yes [email or web address] Informat ion not available 03/25/2016 Do You Wear A Helmet When Biking? Yes [email or web address] Information not available 03/25/2016 What Is Your Level Of Caffeine Consumption? Occasional [email or web address] Information not available 03/25/2016 Can Child Swim? Yes [email or web address] Informati on not available 03/25/2016 What Type Of Director Learning Do You Use? None Information not available 03/25/2016 What Type Of Diet Are You Following? REGULAR [email or web address] Information not available 03/25/2016 Swimming/diving Yes [email or web address] Informati on not available 03/25/2016 Have There Been Any Changes To Your Family Or Social Situation? Yes [email or web address] Information not available 03/25/2016 Are There Any Guns Present In Your Home? No [email or web address] Information not available 03/25/2016 Hard Of Hearing Or Deaf In One Or Both Ears? No Information not available 03/25/2016 What Is Your Home Situation? Both Parents Information not available 03/25/2016 Do You Use Insect Repellent Routinely? Yes [email or web address] Information not available 03/25/2016 Legally Blind In One Or Both Eyes? No [email or web address] Information not available 03/25/2016 Live Alone Or With Others? With Others [email or web address] Information not available 03/25/2016 What Was The Date Of Your Most Recent Tobacco Screening? 11/07/2018 Information not available 2019 How Many Children Do You Have? 0 [email or web address] Information not available 03/25/2016 What Is Your Parents' Marital Status? [email or web address] Information not available 03/25/2016 Pool Exposure Yes [email or web address] Information not available 03/25/2016 Do You Use Protection During Sex? No [email or web address] Information not available 03/25/2016 Do You Use Your Seat Belt Or Car Seat Routinely? Yes [email or web address] Information not available 03/25/2016 Seat Belts Used Routinely Yes [email or web address] Information not available 03/25/2016 Are You Sexually Active? No [email or web address] Information not available 03/25/2016 Do You Have Any Siblings? 3 Information not available 03/25/2016 Smoke Alarm In Home Yes [email or web address] Information not available 03/25/2016 Do You Have Smoke And Carbon Monoxide Detectors In Your Home? Yes [email or web address] Information not available 03/25/2016 Are You Passively Exposed To Smoke? No [email or web address] Information not available 03/25/2016 How Much Tobacco Do You Smoke? No [email or web address] Information not available 03/25/2016 What Types Of Sporting Activities Do You Participate In? Swim Team [email or web address] Information not available 03/25/2016 General Stress Level Low [email or web address] Information not available 03/25/2016 Do You Use Sunscreen Routinely? Yes Information not available 03/25/2016 Year In School 7 Informatio n not available 03/25/2016 Sex: Unknown Functional Status Question Answer Note LastModified by Organization D etails LastModified Time What is your level of alcohol consumption? None [email or web address] Information not available 03/25/2016 Are you currently employed? No [email or web address] Information not available 03/25/2016 Are you able to care for yourself independently? Yes [email or web address] Information not available 03/25/2016 What is your exercise level? Moderate [email or web address] Information not available 03/25/2016 Mental Status Question Answer Note LastModified by Organization D etails LastModified Time Are you or have you been involved with bullying? No [email or web address] Information not available 03/25/2016 Family History Relationship Description Onset Age of this Age Resolved Age Notes LastModified by Organization Details LastModified Time Father No current problems or disability jv Not available 12:16:29 Mother No current problems or disability jv Not available 12:16:29 Medical History No medical history recorded. Gynecological HistoryNo gynecological history recorded. Obstetrics History GPAL:G 0 P 0 0 0 0 Immunizations Vaccine Type Date Status Note Provider Nam e and Address Organization Details Recorded Time Influenza, split virus, quadrivalent, PF 9 completed Not Available [facility] 10/20/2019 02:36:26 Influenza, split virus, quadrivalent, preservative 9 completed Not Available [facility] 04/22/2021 13:33:59 HPV, bivalent 6 completed Not Available [facility] 10/20/2019 02:36:24 Meningococcal MCV4O 2 completed ANUSHA [facility] 03/02/2022 09:51:51 Tdap 6 completed Not Available [facility] 10/20/2019 02:36:20 Meningococcal MCV4O 6 completed Not Available [facility] 10/20/2019 02:36:24 Past Encounters Encounter ID Performer Location Encounter Start Date Encounter Closed Date Diagnosis/Indication Diagnosis SNOMED-CT Code Diagnosis ICD10 Code Diagnosis IMO Codes Diagnosis Note [id number] Ash Moore MD Main Office [address] [facility], [address] [address] 11/05/2015 17:30:02 12/06/2015 03:49:36 Active or passive immunization 507002296 Z23 [id number] Ash Moroe MD Main Office [address] [facility], [address] [place] [address] 03/25/2016 08:54:21 03/25/2016 10:20:19 Well child 765603304 Z00.129 10-year-ol d female in excellent healthVacc mario given today as belowPatie nt encouraged to brush her teeth twice dailyFollo w-up in 1 year for yearly wellness exam or earlier as needed Active or passive immunization 115175886 Z23 Asthma 644257114 J45.90 9 [id number] Jennifer Moore MD Main Office [address] [place] [address], [address] [place] [id number] 11/23/2016 12:00:27 11/23/2016 16:28:54 Acute asthma 940095921 J45.901 Rec short course of oral steroids and use of inhaler or neb 3-4 times daily until symptoms resolve. Restart the Advair on daily basis after episode. RTC if any worsening or failure to improve in next 1-2 days. [id number] Ash Moore MD Main Office [address] [place] [address], [address] [place] [id number] 04/27/2017 14:29:17 05/02/2017 17:59:01 History and physical examination, school [id number] Z02.0 Sports physical for filled out and given to mother. [id number] Ash Moore MD Main Office [address] [place] [address], [address] [address] 05/11/2017 12:08:50 05/12/2017 11:50:53 Acute asthma [id number] J45.901 Saline nasal sprayConti nue all asthma and allergy meds.Add Zpak, MDP and nebulizer as needed at home.RTC for any concerning symptoms and in one week to reevaluate . [id number] César Montez MD Main Office [address] [place] [address], [address] [place] [address] 04/17/2018 11:49:18 04/17/2018 14:37:52 Well child [id number] Z00.129 Well-appea ring young teen presents for WCC. Growing and developing well. No concerns about vision or hearing. Anticipato ry guidance discussed, including supervisio n and safety, emerging independen ce and family rules, limit screen time, appropriat e nutrition and activity for age, pubertal changes, sexual activity, avoid drugs/EtOH , signs of depression . No need for immunizati ons today. No current need for fluoride supplement ation. TB risk is low. Follow-up as below for next WCC, sooner if any new concerns. History an d physical examination, sports participation [id number] Z02.5 No significan t medical history. No meds. No concerning cardiopulm onary symptoms. Normal physical exam. Cleared for full participat ion in sports without restrictio n. [id number] César Montez MD Main Office [address] [place] [address], [address] [address] 06/02/2018 09:36:21 06/06/2018 09:36:48 Acute asthma 767069701 J45.901 She has plenty of Albuterol at home.Stero id inj given and Rx for oral prednisone .Encourage d Q4hr Albuterol as needed.ER precaution s given.Retu rn if worsens, fails to improve, or new/concer komal symptoms. 25 minutes spent with the patient face to face; over half this time was spent in education, counseling , and coordinati on of care. [id number] César Montez MD Main Office [address] [place] [address], [address] [address] 09/29/2018 11:20:23 10/02/2018 11:26:37 Acute asthma [id number] J45.21 Meds: see belowRecs: Limit activity for now, avoid cold air and cigarette smokeF/u: ER precaution s over the weekend [id number] César Montez MD Main Office [address] [place] [address], [address] [address] 11/07/2018 15:35:12 11/08/2018 09:05:55 Acute asthma [id number] J45.21 Cough reported and wheezing on exam.Will rein in her symptoms with prednisone .Again educated on proper use and need for Symbicort as maintenanc e and Albuterol as rescue.For the time being, she is instructed to use Albuterol inhaler TID and Q4hrs PRN and start Symbicort immediatel y 2 puffs BID.Return if worsens, fails to improve, or new/concer komal symptoms. Allergic rhinitis 133986 04 J30.9 Suspect more allergies than anything.P ossibly could be developing a frontal sinus infection, but will see how she does with steroids before we entertain ABX.Recomm ended BID nasal saline irrigation , Flonase 2 spray each side daily, and Zyrtec or Claritin daily.If not better in 2-3 days, consider Augmentin. [id number] César Montez MD Main Office [address] [place] [address], [address] [address] 02/20/2019 08:57:08 02/20/2019 21:53:48 Acute asthma 997468065 J45.21 Symptoms seem to worsening on an every other month basis.Seem to clearly be related to allergies. She has an appointmen t with an Adult High School Instructor for allergy testing.Fo r today's symptoms, we will give a steroid shot and prednisone pills if not improving. Increase Symbicort dose.Retur n if worsens, fails to improve, or new/concer komal symptoms. [id number] Ash Moore MD Main Office [address] [facility], [address] [place] [address] 05/01/2019 11:18:49 05/01/2019 21:17:08 Well child 601055319 Z00.129 14-year-ol d female in excellent healthAnti cipatory guidance: whole foods diet, minimize manufactur ed foods/proc essed foods, avoid carbohydra te dense foods, exercise daily to maintain optimal weight. Follow up yearly for screening labs and tests. Fatigue 05902575 R53.83 falls asleep anywherege t labs [id number] César Montez MD Main Office [address] [facility], [address] [place] [address] 08/28/2019 12:08:40 08/29/2019 20:20:54 Verruca vulgaris 82064547 B07.9 Recommende d OTC salicylic acid and/or freeze treatments for anything that does not resolve with today's cryotherap y. Discussed utility of direct baby ASA use. Warm Epsom salt soaks with gentle use of pumice stone encouraged .Do not pick or scratch. If not getting better, encouraged to return for repeat cryotherap y. Administra tion of influenza vaccine 69311004 Z23 [id number] Ash Moore MD Main Office [address] [facility], [address] [place] [address] 12/12/2019 11:12:05 12/12/2019 13:44:25 Fatigue 03875452 R53.83 falls asleep anywherege t labscall with results Menometrorrhagia 5598407 08 N92.1 ongoingget labsconsid er OCPcall with results Pica 49622142 F50.89 likely due to anemiaget labs [id number] Ash Moore MD Main Office [address] [facility] [address] 03/14/2020 11:42:53 03/17/2020 11:42:36 Acute upper respiratory infection 63575902 J06.9 likely viralrec medrol dose velasquez due to wheezingre c flonase nasal spraydiscu ssed covid testing and would recommend- -gave hotline to get info for testingrec to call if develop fever or if symptoms persistgo to ER for shortness of breathcont inue inhalers as needed [id number] César Montez MD Main Office [address] [facility], [address] [place] [address] 10/21/2020 14:36:44 10/22/2020 16:33:35 Epigastric pain 34855477 R10.13 Suspect gastritis vs PUD.Will check for H.pylori and check other labs.Pancr eatitis doubtful, but will check lipase.Con sidered GB disease, but give location of pain with associated early satiety, suspect more acid and stomach related.Tr ial PPI.If labs negative and does not respond to PPI, consider Abd US and/or GI referral.R eturn if worsens, fails to improve, or new/concer komal symptoms. 25 minutes spent in face to face care of this patient; over half was spent in education, counseling , and coordinati on of care. [id number] Ash Moore MD Main Office [address] [place] [address], [address] [place] [address] 05/04/2021 11:24:19 05/04/2021 19:19:05 Well child 083536838 Z00.129 Healthy 16 yoF/u in 1 yrlap pro incisions look good [id number] Ash Moore MD Main Office [address] [facility], [address] [place] [address] 03/02/2022 09:08:26 03/19/2022 11:23:43 Well child visit 182438409 Z00.129 healthy 16 yoAnticipa tory guidance: whole foods diet, minimize manufactur ed foods/proc essed foods, avoid carbohydra te dense foods, exercise daily to maintain optimal weight. Follow up yearly for screening labs and tests. Active or passive immunization 335253012 Z23 [id number] Ash Moore MD Main Office [address] [place] [address], [address] [place] [address] 03/29/2023 10:09:51 03/29/2023 11:18:32 Hypocalcemia 1372183 E83.51 new findingrec [facility] Adult heal th examination 550755424 Z00.00 17 yo in excellent healthAnti cipatory guidance: whole foods diet, minimize manufactur ed foods/proc essed foods, avoid carbohydra te dense foods, exercise daily to maintain optimal weight. Follow up yearly for screening labs and tests. Hyperlipid emia screening 699555602 Z13.220 Pain in le ft lower limb 191689587 M79.605 concern for anterior midshaft stress fxxrays negMRI for further eval Stress fra cture of left tibia [id number] 0216391 M84.362A concern for anterior midshaft stress fxxrays negMRI for further eval Iron defic iency anemia 35166131 D50.9 chronicrec [facility] [id number] Ash Moore MD Main Office [address] [place] [address], [address] [address] 09/21/2023 10:38:13 09/21/2023 11:11:16 Pain in right lower limb 855111151 M79.604 concern for developing stress fxrest? side effect from Xolairchec k labsMRI if sx persist Iron defic iency anemia 31443243 D50.9 chronicrec [facility] [id number] Ash Moore MD Main Office [address] [place] [address], [address] [address] 03/05/2024 12:52:31 03/05/2024 13:43:29 Pain in right lower limb 665347047 M79.604 Hx of recurrent stress fracturesP [facility] pr[facility] for painActivi ty modificati onF/u if sx persist or worsen [id number] Ash Moore MD Main Office [address] [place] [address], [address] [place] [address] 02/21/2025 15:35:48 04/01/2025 16:16:43 Fatigue 44714190 R53.83 19103515 runner and would like labstaking iron daily [id number] Ash Moore MD Main Office [address] [place] [address], [address] [place] [address] 05/08/2025 12:46:00 05/08/2025 13:25:03 Adult health examination 644253437 Z00.00 859340 20 yo in excellent healthAnti cipatory guidance: whole foods diet, minimize manufactur ed foods/proc essed foods, avoid carbohydra te dense foods, exercise daily to maintain optimal weight. Follow up yearly for screening labs and tests. Uses oral contraception 2044301 Z30.41 History of anaphylaxis 1869581100 6261026 Z87.878 9016132 Iron defic iency anemia 89147840 D50.8 37303405 chronicrec heck labscall with resultson Fe by mouth Health Concerns Section Related Observation LastModified by Organization Detai ls LastModified Time None Recorded Concern Status LastModified by Organization Details LastModified Time None Recorded Advance Directives Directive N: Payers Insurance Date Sequence Insurance Name Policy Number Policy Tripp Covered Member ID Tripp Member ID Guarantor Name 05/11/2025 1 [employer] (POS) [id number] Pedro Luis Garzon [id number] Pedro Luis Garzon 07/21/2021 1 R [id number] Arnavharley Sheridan Garzon [id number] Pedro Luis Garzon Notes Date Note Type Note Provider Name and Address Organization Details Recorded Time 3 text/html Well Child:Analy is a 17 year old Female without a significant past medical history here for well child exam. No patient or parental concerns. Development has been normal. Immunizations are up to date. Oral ContraceptionHailey Fe L anterior hui painsevererecurrent after 1 months rest1 month of recurrent painrunning 30 miles weekly Ash Moore MD [address] [place] [address], [facility] [address], [place], [address], [facility] - [facility] 03/29/2023 11:08:47 3 text/html 18 y/o F est pt presents today for hui pain. Location: Rt hui Onset: 3 weeks ago Frequency: Comes and goes Quality:Throbbing pain Severity: Mild Better with: Rest & occasional ice Worse with: Running and walking Associated symptoms: None No fevers, chills, skin changes Self treatment: Ice hx of iron deficiency anemia Ash Moore MD [address] [place] [address], [address], [place], [address], [facility] Sports and Family Medicine [facility] 09/21/2023 11:14:03 4 text/html 18 y/o F est pt presents today for a med review. Patient reports pain to R LE.Hx of recurrent stress fx Ash Moore MD [address] [facility], [address], [place], [address], [facility] Sports and Family [facility] 03/22/2024 17:46:45 5 text/html 19 y/o female in today to discuss possible lab work. CYNTHIA Wiley [address] [facility], [address], [place], [address], [facility] Sports and [facility] 03/22/2025 10:12:56 5 text/html Annual Exam:20 y/o female here for annual wellness exam.Currently denies any ongoing symptoms or complaints.Last TDaP: [id number] flu shot:[id number] pap smear was: never had one iron deficiency anemia Ash Moore MD [address] [facility], [address], [place], [address], [facility] Sports and Family [facility] 05/08/2025 13:23:25 OBGyn Episode No OBEpisode recorded.
--- OUTSIDE RECORDS SUMMARY | 2025-07-23 15:58 | XMS_ITS | Clinical Summary ---
Author Organization [facility] Address [address] [place] [address] Care Team Providers Care Feed Preparation Operator Name Role Phone N/A, Pcp Primary Care Provider Ash Villalpando MD Unavailable Ana Maria Cotto Unavailable [phone] Source Comments This patient is being referred for medical care/services via this automatically generate document. This document will provide information important for the transfer of patient care & comply with [facility] Meaningful Use Transitions of Care requirements.[facility] and [facility] Allergies No known active allergies Medications DYMISTA 137-50 MCG/ACT Nasal SUSP 9 Active Levocetirizine Dihydrochloride (XYZAL) 5 MG Oral TABS TAKE ONE (1) TABLET(S) BY MOUTH DAILY. 6 9 Active albuterol (PROVENTIL HFA) 108 (90 Base) MCG/ACT Inhalation inhaler 0 Active JUNEL FE 1.5/30 1.5-30 MG-MCG Oral tablet 0 Active XOLAIR 150 MG/ML Subcutaneous SOSY 0 Active Active Problems No known active problems Social History Tobacco Use Types Packs/Day Years Used Date Smoking Tobacco: Never Smokeless Tobacco: Never Alcohol Use Standard Drinks/Week Comments Never 0 (1 standard drink = 0.6 oz pur e alcohol) AUDIT-C Answer Date Recorded Frequency of Alcohol Consumption Never 04/30/2019 Average Number of Drinks Not on file 019 Frequency of Binge Drinking Not on file 04/03 Comments Unknown Sex and Gender Information Value Date Recorded Sex Assigned at Not on file Legal Sex Female 8:50 AM CDT Gender Identity Not on file Sexual Orientation Not on file Last Filed Vital Signs Vital Sign Reading Time Taken Comments Blood Pressure 109/60 06/11/2019 8:25 AM CDT Pulse 94 07/21/2020 1:33 PM CDT Temperature - - Respiratory Rate 18 07/21/2020 1:33 PM CDT Oxygen Saturation 100% 07/21/2020 1:33 PM CDT Inhaled Oxygen Concentration - - Weight 56.8 kg (125 lb 3.5 oz) 07/21/2020 1:33 P M CDT Height 170.2 cm (5' 7) 07/21/2020 1:33 PM CDT Body Mass Index 19.61 07/21/2020 1:33 PM CDT Plan of Treatment Health Maintenance Due Date Last Done Comments MMR VACCINES (1 of 1 - Stand rakesh series) 2005 HPV Vaccine (1 - 3-dose series) 2019 Meningococcal B (1 of 2 - Standard) 2020 DTaP/Td/Tdap Vaccine (1 - Tdap) 2023 CERVICAL CANCER SCREENING 2025 INFLUENZA VACCINE (#1) 2025 COVID-19 Vaccine (1 - 2023-2 5 season) 2025 Meningococcal ACWY Aged Out No longer eligible based on patient's age to complete this topic Pneumococcal Vaccine Aged Out No long er eligible based on patient's age to complete this topic Care Teams Feed Preparation Operator Relationship Specialty Start Date End Date N/A, Pcp PCP - General 04/24/19 Ash Paz MD Otolaryngology 04/30/19 Ana Maria Blakely, THIAGO [address] [place] [address] Speech Pathology 04/30/19
[2025-07-23 16:03] VITALS: BP 123/74; PULSE 104; RESP 16; TEMP 37.6; O2SAT 98; BMI 21.1
--- NOTE | 2025-07-23 18:21 | ED_ITS ---
HPI - General Adult General Chief complaint: Chest Pain Stated complaint: chest pains Time Seen by Provider: 07/23/25 18:21 History of Present Illness HPI narrative: end of june bad cold that lasted over 2 weeks. went back to doctor and told had bronchitis. started having chest pain soon after that, went back to doctor and had ct scan to r/o PE. told to wear oximiter around when walking and noticed heartrate high with that. , a week and half ago, diagnosed with pericarditis. took medicine for 7 days. pt flew back from [place] today . says almost passed out but didn't and had a little nausea , lasted about 15 minutes. nausea still continues. in the last 3 hours chest pain getting worse and starting to hurt as it originally had. had been taking ibuprofen too to help with pain. last dose yesterday. 20-year-old woman presenting to the emergency department with concern upper chest pain. It is somewhat pleuritic or at least exacerbated with very deep inspiratory effort and maybe better when she lays actually little worse when she sits. Does have history of various allergies. She was diagnosed with bronchitis bronchospasm 06/28/2025 treated in urgent care with DuoNebs which did appear to. She actually was continued than nebulizer. She does not feel like she is having trouble getting air moving. On follow-up was diagnosed 6 days ago with suspected pericarditis and did seem to improve with colchicine. Today went to get up from sleep became rather lightheaded nearly passed out. She notes she has passed out before with anemia but this was different. And now today chest pain as escalated. Contrasted CT of chest 6 days ago some unremarkable. Is a runner and had walking tachycardia without initial evaluation. Normally pulse would be much lower she says. Related Data Home Medications ?Medication ?Instructions ?Recorded ?Confirmed colestipol 1 gram tablet 1 g PO BID 06/28/25 06/28/25 epinephrine 0.3 mg/0.3 mL IM DIRECTED 06/28/2506/04 injection, auto-injector norethindrone 1.5 mg-ethinyl 1 tab PO DAILY 06/28/25 1 estradiol 30 mcg(21)/iron 75 mg(7) tablet (Mary Ellen Fe 1.5 (28)) Previous Rx's ?Medication ?Instructions ?Recorded albuterol sulfate 90 mcg/actuation 2 puff inhalation Q 4-6H PRN 06/28/25 aerosol inhaler shortness of breath or wheez ing #8.5 grams colchicine 0.6 mg tablet 0.6 mg PO BID #60 tabs 07/23 Allergies Allergy/AdvReac Type Severity Reaction Status Date / Time dog dander AdvReac Intermediate Verified 06/28/25 11:19 Review of Systems Status of ROS: Reports: 6 or more systems reviewed and unremarkable except as noted in History and below Exam Narrative: Exam Narrative: Pleasant. NAD. Appears to be breathing easily. Transitioning without notable difficulty. Heart in elevated rate in regular rhythm without murmur rub or gallop. Lungs are clear. Skin is warm and dry without rash. I would not really able to reproduce discomfort to palpation. Extremities well perfused without edema. No supraclavicular crepitus. Const: Vital Signs, click to edit/add: Vital Signs - 24 hr 07/23/25 16:03 07/23/25 19:26 Temperature 99.6 F Pulse Rate [Pulse Oximeter] 104 H 98 Respiratory Rate 16 16 [facility] 123/74 110/80 Pulse Oximetry 98 98 Oxygen Delivery Me thod Room Air Room Air Documenting provider has reviewed patient's vital signs: yes Course Vital Signs Vital signs: Initial Vital Signs Temperature 99.6 F 07/23/25 16:03 Temperature Source Temporal Artery Scan 07/23/25 16:03 Pulse Rate 104 H 07/23/25 16:03 Respiratory Rate 16 07/23/25 16:03 Blood Pressure 123/74 07/23/25 16:03 Blood Pressure Mean 90 07/23/25 16:03 Blood Pressure Position Sitting 07/23/25 16:03 Pulse Oximetry 98 07/23/25 16:03 Oxygen Delivery Method Room Air 07/23/25 16:03 Vital Signs Temperature 99.6 F 07/23/25 16:03 Pulse Rate 104 H 07/23/25 16:03 Respiratory Rate 16 07/23/25 16:03 Blood Pressure 123/74 07/23/25 16:03 Pulse Oximetry 98 07/23/25 16:03 Oxygen Delivery Method Room Air 07/23/25 16:03 Temperature 99.6 F 07/23/25 16:03 Pulse Rate 98 07/23/25 19:26 Respiratory Rate 16 07/23/25 19:26 Blood Pressure 110/80 07/23/25 19:26 Pulse Oximetry 98 07/23/25 19:26 Oxygen Delivery Method Room Air 07/23/25 19:26 Medications Administered Medications: Discontinued Medications Generic Name Dose Route Start Last Admin Trade Name Freq PRN Reason Stop Dose Admin Colchicine 0.6 mg 07/23/25 21:40 07/23/25 22:05 Colchicine 0.6 Mg Capsule PO 07/23/25 21:41 0.6 mg ONCE ONE Administration Ibuprofen 600 mg 07/23/25 21:39 07/23/25 22:05 Ibuprofen 200 Mg Tablet PO 07/23/25 21:40 600 mg ONCE ONE Administration Medical Decision Making MDM Narrative Medical decision making narrative: Would recheck labs looking for evidence dry further evaluation. Chest x-ray with possible pneumonia or pneumothorax. Costochondritis and pleuritis and pericarditis remains in differential. Did manage to obtain EKG that was done prior. There are numerous leads with ST elevation; see below. Chest x-ray by my independent review is without acute abnormality. Cardiac silhouette is WNL. Mildly elevated D-dimer not inconsistent with inflammatory changes in not sure represent pulmonary embolus. She would be unlikely to have pulmonary embolus. I did return with point of care ultrasound. Procedure is point of care ultrasound. Indication is pericarditis and to evaluate for pericardial fluid. Consent obtained. Subxiphoid view and left trans thoracic imaging show good cardiac activity and without evidence of pericardial fluid. Images captured. Subxiphoid view in particular was tender but tolerated imaging procedure well. I think on review record in literature would need longer course of colchicine in pericarditis. Given a dose here in the emergency department. EKG here suggestive of not atypical progression of pericarditis in stage III. Otherwise no red flags. Indication: Upper chest pain, somewhat pleuritic Technique: Chest 2 views Comparison: Chest x-ray 06/28/2025 Findings/Impression: Cardiovascular and mediastinum: Heart size and vasculature are normal in caliber and appearance. Mediastinum is within normal limits. Lungs and pleural spaces: Lungs are clear. No sign of infiltrate or mass. No sign of pleural effusion. No pneumothorax. Bones and soft tissues: Right upper quadrant surgical clips. Dictated by Noe Vickers MD @ 07/23/2025 7:27:20 PM The patient discharge plan for further discussion Probably is a good idea to follow up with that formal echocardiogram at the end of the week. I am prescribing another month of colchicine. I would like to have you follow- up at that time for likely repeat prescription to complete approximately 3 months of therapy. You should not need to taper this medication. Can further discuss treatment duration at that time. I would like you to take 400 mg ibuprofen, maybe with a little food, 3 times daily over the next week. Be seen sooner for marked increase in pain, increasing shortness of breath, fever, worsening lightheadednes Medical Records Medical records narrative: Changes in this EKG would appear to be consistent with evolution of EKG over time in a diagnosis of pericarditis Lab Data Lab results reviewed: Yes I reviewed the patient's lab results Labs: Lab Results 07/23/25 07/23/25 07/23/25 Range/Units 18:58 19:07 19:28 WBC 8.39 (4.50-11.00) K/uL RBC 5.09 (4.00-5.20) m/uL Hgb 14.0 (12.0-16.0) gm/dL Hct 42.4 (33.0-51.0) % MCV 83 (80-100) fL MCH 28 (26-34) pg MCHC 33 (32-36) gm/dL RDW Coeff of Seun 12.0 (11.5-15.5) % Plt Count 275 (140-440) K/uL Neut % (Auto) 85.9 H (42.0-72.0) % Lymph % (Auto) 7.0 L (20-44) % [place] % (Auto) 4.2 (0.0-11.0) % Eos % (Auto) 2.5 (0.0-7.0) % Baso % (Auto) 0.2 (0.0-3.0) % Neut # (Auto) 7.20 H (1.7-7.0) K/uL Lymph # (Auto) 0.60 L (0.90-2.90) K/uL [place] # (Auto) 0.40 (0.00-0.90) K/UL Eos # (Auto) 0.21 (0.00-0.50) K/uL Baso # (Auto) 0.02 (0.00-0.30) K/uL Abs Immat Gran (auto) 0.02 (0.00-0.30) K/uL Imm/Tot Granulo (auto) 0.2 % D-Dimer Quant (PE/DVT) 1.12 H (0.00-0.50) ug/ml Sodium 136 (135-149) mmol/L Potassium 3.8 (3.6-5.1) mmol/L Chloride 100 (96-114) mmol/L Carbon Dioxide 21 (20-32) mmol/L Anion Gap 15 (7-15) mEq/L BUN 12 (5-24) mg/dL Creatinine 0.7 (0.5-1.5) mg/dL Estimated Creat Clear 122.90 Estimated GFR 126 ml/min Glucose 92 (60-115) mg/dL Calcium 8.8 (8.4-10.6) mg/dL Troponin I < 0.01 (0.01-0.04) ng/mL C-Reactive Protein 2.8 H (0.5-1.0) mg/dL Lab Acknowledgement Test Added Test Added ECG Data Attestation: I personally reviewed and interpreted this ECG as follows: (Sinus tachycardia 102. Does appear to be atrial enlargement. T-waves downgoing in the anterior lateral leads and in 1 to 3 and AVF. We were able to locate EKG from 07/11/[address] elevation along with upgoing T-waves in V2 through V6 -- T-wave inversion in these leads today) Discharge Plan Discharge Clinical Impression: Pericarditis Patient Disposition: Home w/ Parent or Adult Condition: Stable Additional Instructions: Probably is a good idea to follow up with that formal echocardiogram at the end of the week. I am prescribing another month of colchicine. I would like to have you follow- up at that time for likely repeat prescription to complete approximately 3 months of therapy. You should not need to taper this medication. Can further discuss treatment duration at that time. I would like you to take 400 mg ibuprofen, maybe with a little food, 3 times daily over the next week. Be seen sooner for marked increase in pain, increasing shortness of breath, fever, worsening lightheadedness. Prescriptions: New colchicine 0.6 mg tablet 0.6 mg PO BID Qty: 60 2RF No Action norethindrone-e.estradiol-iron [Mary Ellen Fe 1.5/30 (28)] 1.5 mg-30 mcg (21)/75 mg (7) tablet 1 tab PO DAILY epinephrine 0.3 mg/0.3 mL auto-injector IM DIRECTED colestipol 1 gram tablet 1 g PO BID albuterol sulfate 90 mcg/actuation HFA aerosol inhaler 2 puff inhalation Q4-6H PRN (Reason: shortness of breath or wheezing) Qty: 8.5 0RF Follow Up/Referrals: Provider,Not a Local [Primary Care Provider, Family Practice] Stand Alone Forms: MyHealth Info Instructions
--- NOTE | 2025-07-23 18:41 | CRLHL7_ITS ---
For Patients: As a result of the Century Cures Act, medical imaging exams and procedure reports are released immediately into your electronic medical record. You may view this report before your referring provider. If you have questions, please contact your health care provider. Indication: Upper chest pain, somewhat pleuritic Technique: Chest 2 views Comparison: Chest x-ray 06/28/2025 Findings/Impression: Cardiovascular and mediastinum: Heart size and vasculature are normal in caliber and appearance. Mediastinum is within normal limits. Lungs and pleural spaces: Lungs are clear. No sign of infiltrate or mass. No sign of pleural effusion. No pneumothorax. Bones and soft tissues: Right upper quadrant surgical clips. Dictated by Noe Vickers MD @ 07/23/2025 7:27:20 PM (Electronically Signed)
--- OUTSIDE RECORDS SUMMARY | 2025-07-23 18:51 | XMS_ITS | Data Portability ---
Author Organization [place] - [facility] - General Surgery Address [address] [place] [address] Care Team Providers Care Efficiency Clerk Name Role Phone DAYANARA BOYD Primary Care Provider [phone] HILL CASAREZ School Bus Driver [phone] Assessment Encounter Date Assessment Date Assessment LastModified by Organization Details LastModified Time 03/07/2025 03/07/2025 Will test for Ce liac, TSH, . Discussed bile acid diarrhea. Will prescribe Questran. Will prescribe Levsin. Follow up in four to six weeks A total of twenty minutes was spent obtaining /reviewing the patient's history, performing an examination, reviewing records, ordering medications or diagnostic tests/procedures, coordination of care and documenting clinical information in the medical record. This time does not include activities normally performed by clinical staff or duplicate any time spent by other healthcare professionals on the same day. Record completion dictated by montserrat Shook MA and signed off by . Addendum: Patient has a complicated history of abdominal pain and is status post cholecystectomy which did not help. 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 However, she has had intermittent dyspeptic symptoms usually associated with food and often with diarrhea. The symptoms are nonspecific. Workup in the past has included an upper endoscopy, results of which are largely unknown and likely benign. Her celiac status is unclear. There may have been thyroid issues in the past and her sister has Alan's thyroiditis. I think the best initial evaluation of would be to obtain her previous EGD and path results. I will check her celiac status as well as a TSH. Will also start her on Questran 1/2 pack twice daily and Levsin SL. We can reassess her in about 4 to 6 weeks. I think if nothing is found then we can proceed with EGD. 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 There is also no overt evidence of inflammatory bowel disease. TORI [email or web address] Not available 03/07/2025 11:20:30 04/16/2025 04/16/2025 Will order EGD. Will test IgE - will check for Alpha-gal. Will test triple phase CT. A total of 25 minutes was spent obtaining /reviewing the patient's history, performing an examination, reviewing records, ordering medications or diagnostic tests/procedures, coordination of care and documenting clinical information in the medical record. This time does not include activities normally performed by clinical staff or duplicate any time spent by other healthcare professionals on the same day. Record completion dictated by montserrat Shook MA and signed off by . Addendum: Patient is a complicated history of abdominal pain and diarrhea. This is led to cholecystectomy as well as a diagnosis of median arcuate ligament syndrome with subsequent surgery. Symptoms continue with postprandial abdominal pain and frequent diarrhea. TSH is normal. 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 She does restrict gluten. In addition I do have some concerns regarding alpha gal syndrome and she has a history of elevated IgE and hives in the past. There are no noted tick bites. Will proceed with EGD with extensive biopsies of the small bowel. I will check an IgE E for alpha gal and consider CT scan if the above is negative. Further recommendations to follow. TORI CHENG [email or web address] Not available 04/16/2025 16:35:53 05/14/2025 05/14/2025 Will prescribe Colestipol twice a day. If it causes constipation, will go to once a day. Consider Bentyl at next appointment. Patient will get the CT and Alpha-gal that was ordered on her last appointment. Follow up in four weeks. A total of 15 minutes was spent obtaining /reviewing the patient's history, performing an examination, reviewing records, ordering medications or diagnostic tests/procedures, coordination of care and documenting clinical information in the medical record. This time does not include activities normally performed by clinical staff or duplicate any time spent by other healthcare professionals on the same day. Record completion dictated by montserrat Shook MA and signed off by . [email or web address] Not available 05/14/2025 16:20:36 Plan of Treatment Reminders Order Date Submit Date Provider Last Modified By Organization Details Last Modified Time Details Appointments None recorded. Lab alpha-gal ige, serum [address] (Lab), [address] [facility] [place], [address], 16:29:44 celiac disease comprehens kinjal panel, serum [address] (Lab), [address] [facility] [place], [address], 10:24:45 TSH, serum or plasma 2024 [facility] (Lab), [address] [facility] , [place], [address], 15:48:49 Referral None recorded. Procedures upper endoscopy procedure (EGD) (PROC) - Your follow up appointmen t with your provider is scheduled on 05/21 at 4:00 PM. If this date/time does not work for you, please call the office to reschedule at [phone]. 2024 [facility] Procedure Scheduling, [address] [facility] [place], [address], 09:00:23 Surgeries None recorded. Imaging CT, abdomen + pelvis, w/ contrast - Triple phase CT. Please contact patient to schedule 2024 [facility], [address] [facility] [place], [address], 16:35:12 Medication Orders colestipol 1 gram tablet [address] [facility], [address], [place], [id number], 16:37:41 Questran 4 gram powder for susp in a packet [address] [facility], [address], [place], [place], [id number], 5 10:24:45 Levsin/SL 0.125 mg sublingual tablet [address] [facility], [address], [place], [place], [phone], 5 10:24:45 Patient TargetsNo targets recorded. Patient InstructionsNo instructions recorded. Reason for Referral None Reported. Results Created Date Observation Date Name Description Value Unit Range Abnormal Flag Note LastModifiedBy Organization Detail LastModifiedTime 05/06/2005/06/2025 HCG POC URINE QUALI TATIV E HCG POC urine qualitative NEGATI VE Not Available [facility] (Lab) [address] [place] [address] , [place], [address], 05/06/2025 10:55:05 05/06/2005/06/2025 IMMUN OPERO XIDAS E results Name: SMALL BOWEL BIOPS Y Descr iptio n: Name: DUODE NAL BULB BIOPS Y Descr iptio n: Name: STOMA CH BIOPS Y Descr iptio n: DORA Gramajo Name: ESOPH AGEAL BIOPS Y Descr iptio n: DISTA L ----- ----- ----- ----- ----- ----- ----- ----- ----- ----- ----- ----- ----- ----- ----- ----- ----- ----- -- FINAL DIAGN OSIS: 1. Small bowel , biops y: - Benig n small bowel showi ng prese rved villo us archi tectu re with no signi fican t infla mmati on. - Featu res of sprue are not ident ified . 2. Duode nal bulb, biops y: - Benig n small bowel showi ng prese rved villo us archi tectu re with no signi fican t infla mmati on. - Featu res of sprue are not ident ified . - A separ ate fragm ent of benig n gastr ic mucos a with mild chron ic infla mmati on is also prese nt. 3. Stoma ch, rando m, biops y: - Mild inact kinjal chron ic gastr itis. - Negat kinjal for intes tinal metap lasia , dyspl portia or malig terrie . - Negat kinjal for Helic obact er by immun ostai n. 4. Dista l esoph filomena, biops y: - Benig n squam ous mucos a with no signi fican t infla mmati on. - Negat kinjal for intes tinal metap lasia /Gunn ett's mucos a. Elect wade george Aicha d Out By: Naye cardenas M.D. - 05/07 14:46 Comme nt: Board Certi ficat ion: Board certi fied in Anato filipe and Clini jaron Patho logy, Cytop athol ogy Discl aimer : Tests used in this case were devel oped and their perfo rmanc e leiyd cteri stics deter mined by [facility] [place] . They have not been clear ed or appro aury by the U.S. Food and Drug Admin istra tion (FDA) . The FDA has deter mined that such clear ance or appro tiffanie is not neces ne. Locat ion: Techn ical proce ssing at [facility] [place] , [address] [place], [place] [address] , Tel , Toll free [phone] Karla kim inter preta tion at [facility] , [address] [place] [address] ----- ----- ----- ----- ----- ----- ----- ----- ----- ----- ----- ----- ----- ----- ----- ----- ----- ----- -- CLINI JARON HISTO RY Epiga stric abdom inal pain. MICRO DESCR IPTIO N: Micro scopi c exami natio n perfo rmed. See diagn osis. ----- ----- ----- ----- ----- ----- ----- ----- ----- ----- ----- ----- ----- ----- ----- ----- ----- ----- -- GROSS : 1. Small bowel biops y. Multi ple biops ies, 24 x 20 x [address] TE A1 2. Duode nal bulb biops y. 3 biops ies. TE B1 3. Dora gramajo stoma ch biops y. 6 biops ies. TE C1 4. Dista l esoph filomena biops y. 3 biops ies. TE D1 () 05/06 ----- ----- ----- ----- ----- ----- ----- ----- ----- ----- ----- ----- ----- ----- ----- ----- ----- ----- -- JENNIFER Dave TO: Hill roblero M.D. ----- ----- ----- ----- ----- ----- ----- ----- ----- ----- ----- ----- ----- ----- ----- ----- ----- ----- -- Not Available [facility] (Lab) [address] [place] [address] [place], [address], 05/08/2025 14:16:22 Result Notes Documentation Provider Name and Address Organization Details Recorded Time Immunoperoxidase : Mild inactive chronic gastritis. - Negative for intestinal metaplasia, dysplasia or malignancy. - Negative for Helicobacter [facility] [address] [facility] [address], [place], [address], [facility] 05/08/2025 22:20:51 Procedures Surgical History Date Name Laterality Status Provider Name and Address Organization Details Recorded Time 07/16/20 21 Gastrointestinal Surgery completed [place]o Sandoval [facility] 03/07/2025 09:44:50 04/11/20 Gallbladder Surgery completed Apryl Sandoval [facility] 03/07/2025 09:44:50 Imaging Results None recorded. Procedure Notes None recorded. Medical Equipment None Reported. Allergies Allergen ID Allergen Name Allergen Category Reaction Reaction Severity Criticality Documentation Date Start Date Code Code System Note Provider Name and Address Organization Details Recorded Time 775902 whole wheat allergeni c extract food,medi cation Not available Not available Not available 03/07/2025 67019 9 RxNorm [place]ism[place]lisseth Sandoval [facility] 5 09:44:49 206583 Canis lupus familiari s extract environme nt Not available Not available Not available 03/07/2025 36977 4 RxNorm [place]eth belle [facility] 5 09:44:49 267217 mold extract environme nt Not available Not available Not available 03/07/2025 35320 8 RxNorm [place] belle [facility] 5 09:44:49 198374 mountain cedar pollen extract medicatio n Not available Not available Not available 03/07/2025 36467 1 RxNorm [place]eth Sand[facility] 5 09:44:49 Medications Name Sig Start Date Stop Date Status Note LastModified by Organization Details LastModified Time hyoscyamine 0.125 mg sublingual tablet DISSOLVE ONE (1) TABLET(S) BY MOUTH EVERY FOUR TO SIX HOURS NEEDED. active Not Available Not Available No t Available epinephrine 0.3 mg/0.3 mL injection, auto-injector USE DIRECTED. active Not Available Not Available No t Available colestipol 1 gram tablet TAKE ONE (1) TABLET(S) BY MOUTH TWICE A DAY. active Not Available Not Available No t Available cholestyramine (with sugar) 4 gram powder for susp in a packet MIX ONE-HALF (1/2) PACKET(S) AND TAKE BY MOUTH EVERY DAY. active Not Available Not Available No t Available Mary Ellen 24 Fe 1 mg-20 mcg (24)/75 mg (4) tablet 1 tablet every day by oral route. 2017 active Not Available Not Available Not Avai lable Vitals Date Recorded Oxygen saturation Oxygen saturation in Arterial blood by Pulse oximetry Heart rate Body weight Systolic And Diastolic Provider Name and Address Organization Details Last Updated DateTime 5 85 % 85 % 66 /min 33742.0 9 g 121/80 mm[Hg] Apryl Sandoval [facility] 5 09:54:13 Date Recorded Body weight Body mass index (BMI) Body mass index (BMI) [Percentile] Per age and sex Body height Oxygen saturation Oxygen saturation in Arterial blood by Pulse oximetry Heart rate Systolic And Diastolic Provider Name and Address Organization Details Last Updated DateTime 5 87221.0 3 g 21.6 kg/m2 47 % 170.18 cm 100 % 100 % 58 /min 140/82 mm[Hg] Ivis Herrera [facility] 5 15:56:39 Date Recorded Body height Body mass index (BMI) Body weight Oxygen saturation Oxygen saturation in Arterial blood by Pulse oximetry Heart rate Systolic And Diastolic Provider Name and Address Organization Details Last Updated DateTime 5 170.18 cm 21.4 kg/m2 86316.4 4 g 98 % 98 % 56 /min 119/82 mm[Hg] Apryl Sandoval [facility] 5 15:53:21 Social History Question Answer Notes LastModified by Organizat ion Details LastModified Time Tobacco Smoking Status Never Smoker Apryl Sandoval [facility] 03/07/2025 09:45:43 What Is Your Level Of Caffeine Consumption? Moderate [email or web address] Information not available 03/07/2025 What Was The Date Of Your Most Recent Tobacco Screening? 04/16/2025 [email or web address] Information not available 04/16/2025 Sex: Unknown Functional Status Question Answer Note LastModified by Organization D etails LastModified Time What is your level of alcohol consumption? None [email or web address] Information not available 05/14/2025 Mental Status None recorded. Family History Relationship Description Onset Age of this Age Resolved Age Notes LastModified by Organization Details LastModified Time Sister Disorder of thyroid gland 16 [email or web address] Not available 01/2025 09:44:49 Father Polyp of colon 42 [email or web address] Not available 01/2025 09:44:49 Medical History Condition Response Pancreatitis N Atrial Fibrillation N Colon Cancer N Kidney Stones N Enlarged Prostate N Head Trauma/Injury N Emphysema N Hospital Admission Other Than N COPD N Hypothyroidism N Incontinence N Prostate Problems N Diverticulitis/Diverticulosis N Orthopedic Problems N Spine Problems N Gastrointestinal Disease N Sinusitis N Varicose Veins N Autoimmune disease Y Developmental Problems N Acid Reflux (GERD) N Cancer N Stroke N Neck Injury N Bladder or Kidney Problems N High Cholesterol N Liver Disease N Arrhythmia N Kidney Disease N Pituitary Disorder N Gallbladder Disease N Thyroid Problems N NSAID Use N Brain Tumors N Encephalitis N Osteoporosis/Osteopenia N PTSD N Multiple Sclerosis N Meningitis N Colon Polyps N Ulcers N Diabetes N Bleeding Disorder N Back Problems N Dementia N Asthma N Lupus N Jaundice N Mental Problems N Vertigo N GERD/Reflux N Hepatitis N Cirrhosis N Restless leg syndrome N Stomach Ulcer N PCOS N Hypertension N Gynecological HistoryNo gynecological history recorded. Obstetrics History GPAL:G 0 P 0 0 0 0 Past Encounters Encounter ID Performer Location Encounter Start Date Encounter Closed Date Diagnosis/Indication Diagnosis SNOMED-CT Code Diagnosis ICD10 Code Diagnosis IMO Codes Diagnosis Note [id number] Hlil Casarez MD [facility] - Gastroent erology [address] [place] [address] ,[address] [place] [address] 03/07/2025 09:15:00 03/08/2025 20:15:16 Epigastric pain 26396287 R10.13 30401 Chronic diarrhea 7958198 09 K52.9 77428 [id number] Hill Casarez MD [facility] - Gastroent erology [address] [place] [address] ,[address] [place] [address] 04/16/2025 15:49:31 04/16/2025 16:34:32 Epigastric pain 66899994 R10.13 57163 [id number] Hill Casarez MD [facility] - Gastroent [facility]ology [address] [facility] ,[address] [place] [address] 05/14/2025 15:35:37 05/14/2025 17:23:58 Chronic diarrhea 954009932 K52.9 85720 Health Concerns Section Related Observation LastModified by Organization Detai ls LastModified Time None Recorded Concern Status LastModified by Organization Details LastModified Time None Recorded Advance Directives Directive None Recorded Payers Insurance Date Sequence Insurance Name Policy Number Policy Tripp Covered Member ID Tripp Member ID Guarantor Name 07/03/2025 1 [employer] (POS) [id number] Pedro Luis Roblero Ryann [id number] Analy Garzon Notes Date Note Type Note Provider Name and Address Organization Details Recorded Time 03/07/2025 text/html New Pt : 19 yr old : for Irregular BowelsNo referral seen ----[place] Patient is here today to discuss a one year, chronic abdominal pain after meals along with intermittent diarrhea and loss of appetite. On average, she has one to two loose bowel movements a day. The diarrhea is worsened by large meals and will begin with significant abdominal cramping followed by urgency. Patient reports that this normally occurs with her first meal of the day and believes that it is a shock to the stomach to get food which starts the gastric distress. Older sister has Alan's and patient herself has MALS syndrome. Patient follows a gluten free diet and has a gluten sensitivity, but has not been tested Celiac. Recent ferritin was in the 40s, but is normally in the 20s. Her last EGD was in 2020 at [facility]. Hill Casarez MD [address] [facility] [address], [place], [address], [facility] 03/07/2025 11:20:58 04/16/2025 text/html Patient is here today to discuss her abdominal pain and chronic diarrhea. She is usually brought on after a meal, particularly the first meal of the day. Within thirty to sixty minutes after meal, she will begin to experience abdominal discomfort and bloating. She had her gallbladder removed and later had a seperate surgery for the median arcuate ligament syndrome. Patient is unsure if she has worse symptoms with meat, as she is gluten sensitive and has a high protein diet because of her diet restrictions. Hill Casarez MD [address] [facility] [address], [place], [address], [facility] 04/16/2025 16:36:11 05/14/2025 text/html Pt here for F/U after procedure : EGD on 5CT abd/pelvis : ordered on 04/16/2025 (no results )Labs ordered 04/16/2025: for alpha gal panel (no results ) Patient states she is still having the ongoing diarrhea patient states there is some mucous in it and she does have cramps with it after she eats and has to run to the bathroom more. Patient states the toilet water is bright yellow after she has a bowel movement patient stated the poop is brown with yellow around it.Patient is having abd on both sides right and left she states its like a cramping pain after she eats and it can be a sharp pain after she eats and before she has diarrhea.Patient did stop taking cholestyramine she states it didn't stop her having diarrhea she states it made her not poop for a whole day then she had diarrhaea again Patient is here today to follow up on recent EGD. Biopsies were negative for Celiac disease. Patient was taking Questran which caused her diarrhea every other day instead of every day. Bowel movements are currently loose, watery, and occasionally urgent. Notes a lot of yellow mucus mixed in with the stool. Hill Casarez MD [address] [facility] [address], [place], [address], [facility] 05/23/2025 14:10:59 OBGyn Episode No OBEpisode recorded.
[2025-07-23 19:04] LABS: Hematocrit* 42.4 % (33.0-51.0); Hemoglobin* 14.0 gm/dL (12.0-16.0); Immature Granulocytes Abs Auto 0.02 K/uL (0.00-0.30); Immature Granulocytes Pct Auto 0.2 %; Mean Corpuscular HGB Conc 33 gm/dL (32-36); Mean Corpuscular Hemoglobin 28 pg (26-34); Mean Corpuscular Volume 83 fL (80-100); RDW Coefficient of Variation % 12.0 % (11.5-15.5); Red Blood Count* 5.09 m/uL (4.00-5.20); White Blood Count* 8.39 K/uL (4.50-11.00)
[2025-07-23 19:06] LABS: Lymphocytes Absolute Auto 0.60 K/uL (0.90-2.90); Slide Review Reflex No
[2025-07-23 19:20] LABS: Chloride* 100 mmol/L (96-114); Potassium* 3.8 mmol/L (3.6-5.1); Sodium* 136 mmol/L (135-149)
[2025-07-23 19:22] LABS: Blood Urea Nitrogen* 12 mg/dL (5-24); Creatinine* 0.7 mg/dL (0.5-1.5); Est. Creatinine Clearance* 122.90; Estimated Glomerular Filt Rate 126 ml/min
[2025-07-23 19:23] LABS: Anion Gap 15 mEq/L (7-15); Calcium* 8.8 mg/dL (8.4-10.6); Carbon Dioxide* 21 mmol/L (20-32); Glucose* 92 mg/dL (60-115)
[2025-07-23 19:26] VITALS: BP 110/80; PULSE 98; RESP 16; O2SAT 98
[2025-07-23 19:49] LABS: D Dimer Quantitative* 1.12 ug/ml (0.00-0.50)
[2025-07-23] MEDS: IBUPROFEN 200 MG TABLET 600 MG PO (22:05)
[2025-07-23] MEDS: COLCHICINE 0.6 MG CAPSULE PO (22:05)
== END 2025-07-23 22:14 | disposition home or self-care (01) ==
PROVIDERS: Emergency Provider Family Medicine
DX: R07.89 Other chest pain (principal); I31.9 Disease of pericardium, unspecified
CPT/HCPCS: 36415; 71046; 76604; 80048; 84484; 85025; 85379; 86140; 93005; 99284; 99285; A9270